=== PATIENT | female | born 1990 | race African-American/Black ===

== ENCOUNTER 2017-12-01 13:04 | Emergency (ER) | payer OTHER, SELFPAY ==
[2017-12-01 14:26] LABS: Urine Blood NEGATIVE (NEG); Urine Glucose NEGATIVE (NEG); Urine Protein 2+ (NEG); Urine Specific Gravity >1.030 (1.005-1.030); Urine pH 5.5 (5.0-7.0)
--- NOTE | 2017-12-01 14:40 | RAD REPORT ---
EXAM DESCRIPTION: RAD - Chest Single View - 12/01/2017 2:27 pm CLINICAL HISTORY: Chest pain. COMPARISON: 03/02/2015 FINDINGS: Portable technique limits examination quality. The lungs are grossly clear. The heart is normal in size. No displaced fractures. IMPRESSION: No acute intrathoracic process suspected.
[2017-12-01 14:49] LABS: Absolute Lymphocytes (CBC) 1.5 K/uL (0.7-4.9); Absolute Monocytes 0.4 K/uL (0.1-1.3); Absolute Neutrophil 3.1 K/uL (1.8-8.0); Basophils % 0.9 % (0-1.3); Eosinophils % 1.3 % (0-4.4); Hematocrit 37.6 % (36.0-45.0); MCH 30.1 pg (27.0-35.0); MPV 9.6 fL (7.6-11.3); Monocytes % 7.5 % (3.3-12.3); RBC Red Blood Cell Count 4.27 M/uL (3.86-4.86)
[2017-12-01 15:00] LABS: Protime INR 1.26
[2017-12-01 15:03] LABS: Potassium 3.7 mEq/L (3.6-5.0)
[2017-12-01 15:09] LABS: Bilirubin Direct 0.1 mg/dL (0-0.2); Bilirubin Total 0.6 mg/dL (0.3-1.2); Magnesium 1.7 mg/dL (1.8-2.5); Protein, Total 7.8 g/dL (6.0-8.3)
[2017-12-01 15:11] LABS: CKMB Creatine Kinase MB 0.9 ng/ml (0.3-4.0)
[2017-12-01] MEDS ORDERED: PANTOPRAZOLE 40 MG INJ ONE (15:13)
[2017-12-01] MEDS ORDERED: ONDANSETRON 4 MG/2 ML VIAL ONE (15:13)
[2017-12-01] MEDS ORDERED: NA CHLORIDE 0.9% 500 ML ONE (15:42)
[2017-12-01] MEDS ORDERED: PROMETHAZINE 25 MG/ML VIAL ONE (15:42)
--- NOTE | 2017-12-01 17:00 | EKG ---
Test Date: 2017-12-01 Test Time: 14:47:08 Manager Chemistry: HEIDE MEASUREMENT RESULTS: Intervals: Rate: 74 ND: 172 QRSD: 84 QT: 374 QTc: 415 [place]: P: 49 ND: 172 QRS: 51 T: 22 INTERPRETIVE STATEMENTS: Normal sinus rhythm Normal ECG No previous ECG available for comparison Electronically Signed On 12-01-17 16:59:44 CDT by Bret Andrade
--- NOTE | 2017-12-01 18:00 | RAD REPORT ---
EXAM DESCRIPTION: CT - Chest For Pe Angio - 12/01/2017 5:49 pm CLINICAL HISTORY: Chest pain. COMPARISON: None. TECHNIQUE: CT angiogram of the pulmonary arteries was performed with MIP. All CT scans are performed using dose optimization technique as appropriate and may include automated exposure control or mA/KV adjustment according to patient size. FINDINGS: No evidence of pulmonary thromboembolism. No acute aortic finding demonstrated. The lungs are clear. No significant pericardial or pleural fluid. No concerning bony finding. IMPRESSION: No evidence of pulmonary thromboembolism. No acute lung findings.
--- NOTE | 2017-12-01 18:02 | RAD REPORT ---
EXAM DESCRIPTION: CTAbdomen Pelvis W Contrast - 12/01/2017 5:49 pm CLINICAL HISTORY: Abdominal pain. COMPARISON: None. TECHNIQUE: Biphasic CT imaging of the abdomen and pelvis was performed with 100 ml non-ionic IV cont rast. All CT scans are performed using dose optimization technique as appropriate and may include automated exposure control or mA/KV adjustment according to patient size. FINDINGS: The lung bases are clear. The liver demonstrates an area of diminished density in the left lobe, favoring focal fatty infiltrat ion. A small 15 mm enhancing lesion near the dome liver in the right lobe is probably a benign yulissa ioma or similar lesion. No intrahepatic biliary dilatation seen. Postsurgical changes are present abo ut the stomach. Cholecystectomy clips are seen. The spleen, adrenal glands and kidneys are within normal limits. No bowel obstruction, free air, free fluid or abscess. The appendix is slightly prominent in size me asuring 8 mm, without periappendiceal fat stranding. No evidence of significant lymphadenopathy. IUD is present in the uterus. No suspicious bony findings. IMPRESSION: Postsurgical changes about the stomach noted without acute abnormality detected. Upper limit of normal appendix without significant surrounding inflammatory changes. Clinical correla tion with right lower quadrant tenderness is advised.
--- NOTE | 2017-12-01 18:50 | EDPHYS ---
Physician Documentation [facility] Name: Braxton Hunt Age: 27 yrs Sex: Female : 1990 Arrival Date: 12/01/2017 Time: 13:08 Bed 24 Private MD: None, None ED Physician Juan Thomas HPI: 12/01 14:00 This 27 yrs old Black Female presents to ER via Ambulatory with complaints of Chest cp Pain, Vomiting, Shortness Of Breath. 14:00 The patient or guardian reports chest pain that is located primarily in the anterior cp chest wall, left. 14:00 The pain radiates to left back. Associated signs and symptoms: Pertinent positives: cp abdominal pain, shortness of breath, Pertinent negatives: cough, diaphoresis, dizziness, headache, lower extremity pain, lower extremity swelling, palpitations, syncope. 14:00 The chest pain is described as aching. cp 14:00 Duration: The patient or guardian reports multiple episodes, that wax and wane. cp Modifying factors: the symptoms are aggravated by nothing. Severity of pain: in the emergency department the pain has improved moderately. Patient reports history of persistent vomiting after eating. Noticed small amount of blood after vomiting yesterday, none today. Reports having gastric sleeve surgery October 2016 by physician in [place]. No f/u since surgery. 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 - Social history:: Smoking status: Patient/guardian denies using tobacco. ROS: 14:10 Constitutional: Positive for poor PO intake, Negative for body aches, chills, fever. cp 14:10 Eyes: Negative for injury, pain, redness, and discharge. cp 14:10 ENT: Negative for drainage from ear(s), ear pain, sore throat, difficulty swallowing, difficulty handling secretions. 14:10 Cardiovascular: Positive for chest pain, of the left side chest, Negative for edema, palpitations. 14:10 Respiratory: Positive for shortness of breath, Negative for cough, hemoptysis, wheezing. 14:10 Abdomen/GI: Positive for abdominal pain, nausea, vomiting, of the epigastric area, Negative for diarrhea, constipation, hematemesis, black/tarry stool, rectal bleeding. 14:10 Skin: Negative for cellulitis, rash. 14:10 Neuro: Negative for altered mental status, headache, syncope, near syncope, weakness. 14:10 All other systems are negative. Exam: 14:18 Constitutional: The patient appears in no acute distress, alert, awake, cp non-diaphoretic, non-toxic, well developed, well nourished, uncomfortable, overweight 14:18 Head/Face: Normocephalic, atraumatic. Eyes: Pupils equal round and reactive to light, cp extra-ocular motions intact. Lids and lashes normal. Conjunctiva and sclera are non-icteric and not injected. Cornea within normal limits. Periorbital areas with no swelling, redness, or edema. ENT: Nares patent. No nasal discharge, no septal abnormalities noted. Tympanic membranes are normal and external auditory canals are clear. Oropharynx with no redness, swelling, or masses, exudates, or evidence of obstruction, uvula midline. Mucous membranes moist. Neck: Trachea midline, no thyromegaly or masses palpated, and no cervical lymphadenopathy. Supple, full range of motion without nuchal rigidity, or vertebral point tenderness. No Meningismus. 14:18 Chest/axilla: Inspection: normal, Palpation: is normal, no crepitus, no tenderness. 14:18 Cardiovascular: Rate: normal, Rhythm: regular, Pulses: Pulses are 2+ in right radial artery and left radial artery. Edema: is not appreciated, JVD: is not appreciated. 14:18 Respiratory: the patient does not display signs of respiratory distress, Respirations: labored breathing, is not present, accessory muscle usage, is absent, shallow respirations, are not present, splinting, is not noted, tachypnea, is not appreciated, Breath sounds: are clear throughout, decreased breath sounds, are not appreciated, stridor, is not appreciated, wheezing: is not appreciated. 14:18 Abdomen/GI: Inspection: obese scar(s), are noted in the , Bowel sounds: active, all quadrants, Palpation: soft, in all quadrants, moderate abdominal tenderness, in the epigastric area, rebound tenderness, is not appreciated, voluntary guarding, is elicited in the epigastric area. 14:18 Back: CVA tenderness, is absent. 14:55 ECG was reviewed by the Attending Physician. cp Vital Signs: 13:13 BP 147 / 97; Pulse 80; Resp 20; Temp 97.8; Pulse Ox 100% on R/A; Weight 95.71 kg; aj Height 5 ft. 3 in. (160.02 cm); Pain 7/10; 14:56 BP 112 / 89; Pulse 66; Resp 18; Pulse Ox 100% ; tl3 15:58 BP 119 / 88; Pulse 71; Resp 18; Pulse Ox 100% on R/A; tl3 16:59 BP 128 / 79; Pulse 66; Resp 18; Pulse Ox 100% on R/A; tl3 18:16 BP 118 / 76; Pulse 68; Resp 16; Pulse Ox 100% ; tl3 13:13 Body Mass Index 37.38 (95.71 kg, 160.02 cm) aj MDM: 13:26 Patient medically screened. cp 15:00 Differential diagnosis: abnormal EKG, acute pericarditis, anxiety, chest wall pain, cp costochondritis, esophagitis, gastritis, myocarditis, pancreatitis, pneumonia, pneumothorax, pulmonary embolus, thoracic aortic disection. 18:48 ED course: VSS. Nausea markedly improved and vomiting resolved. Patient tolerating po cp fluids. Reexamination of abdomen, no RLQ tenderness noted with palpation. 18:49 Data reviewed: vital signs, nurses notes, lab test result(s), EKG, radiologic studies, cp CT scan, plain films, and as a result, I will discharge patient. 18:49 Response to treatment: the patient's symptoms have markedly improved after treatment. 18:49 Special discussion: Based on the patient's history, exam, and Dx evaluation, there is cp no indication for emergent intervention or inpatient Tx. It is understood by the patient/guardian that if the Sx's persist or worsen they need to return immediately for re-evaluation. Based on the patient's Hx, exam, and Dx evaluation, there is no indication for emergent surgery or inpatient Tx. It is understood by the patient/guardian that if the Sx's persist or worsen they need to return immediately for re-evaluation. 12/01 13:52 Order name: Urine Dipstick--Ancillary (enter results); Complete Time: 14:33 mw2 12/01 16:12 Interpretation: Normal except: USPGR >1.030; UKET 4+; UPROT 2+. cp / 14:10 Order name: Basic Metabolic Panel; Complete Time: 15:12 cp 12/01 15:12 Interpretation: Normal except: GFR 84. cp 12/01 14:10 Order name: BNP; Complete Time: 15:20 cp 12/01 14:10 Order name: CBC with Diff; Complete Time: 14:54 cp 12/01 14:10 Order name: Ckmb; Complete Time: 15:12 cp 12/01 14:10 Order name: CPK; Complete Time: 15:12 cp 12/01 14:10 Order name: LFT's; Complete Time: 15:12 cp 12/01 15:12 Interpretation: Normal except: GLOB 3.8. cp 12/01 14:10 Order name: Magnesium; Complete Time: 15:12 cp 12/01 16:12 Interpretation: Abnormal: MG 1.7. cp 12/01 14:10 Order name: PT-INR; Complete Time: 15:12 cp 12/01 14:10 Order name: Ptt, Activated; Complete Time: 15:12 cp 12/01 14:10 Order name: Troponin (emerg Dept Use Only); Complete Time: 15:12 cp 12/01 14:10 Order name: XRAY Chest (1 view); Complete Time: 14:54 cp 12/01 14:10 Order name: Lipase; Complete Time: 15:12 cp 12/01 14:37 Order name: D-Dimer; Complete Time: 16:11 cp 12/01 16:11 Interpretation: Abnormal: D-DIMER 1613. cp 12/01 14:10 Order name: Urine Test (obtain specimen); Complete Time: 14:46 cp 12/01 14:10 Order name: EKG; Complete Time: 14:10 cp 12/01 14:10 Order name: Cardiac monitoring; Complete Time: 14:46 cp 12/01 14:10 Order name: EKG - Nurse/Tech; Complete Time: 14:46 cp 12/01 14:10 Order name: IV Saline Lock; Complete Time: 14:46 cp 12/01 14:10 Order name: Labs collected and sent; Complete Time: 14:46 cp 12/01 14:10 Order name: O2 Per Protocol; Complete Time: 14:46 cp 12/01 14:10 Order name: O2 Sat Monitoring; Complete Time: 14:46 cp 12/01 14:10 Order name: Urine Dipstick-Ancillary (obtain specimen); Complete Time: 14:46 cp 12/01 14:56 Order name: CT Abd/Pelvis - W/Contrast: give oral contrast cp 12/01 15:55 Order name: CT Chest For PE Angio cp 12/01 18:06 Order name: PO challenge; Complete Time: 19:07 cp EC:55 Rate is 74 beats/min. Rhythm is regular. [place] interval is normal. QRS interval is normal. cp QT interval is normal. No ST changes noted. Interpreted by me. Reviewed by me. Administered Medications: 15:21 Drug: ProTONIX 40 mg Route: IVP; Infused Over: 2 mins; Site: left wrist; tl3 15:59 Follow up: Response: No adverse reaction tl3 15:22 CANCELLED (given IV): Zofran 4 mg PO once tl3 15:22 Drug: Zofran 4 mg Route: IVP; Site: left wrist; tl3 16:00 Follow up: Response: No adverse reaction; Nausea unchanged tl3 15:56 Drug: Phenergan 25 mg Route: IVP; Infused Over: 5 mins; Site: left hand; tl3 18:18 Follow up: Response: No adverse reaction; Nausea is decreased tl3 15:56 Drug: NS 0.9% 500 ml Route: IV; Rate: bolus; Site: left hand; Delivery: Primary tubing; tl3 17:00 Follow up: IV Status: Completed infusion; IV Intake: 500ml tl3 Point of Care Testing: Urine : 17:17 hCG Reading: Negative; tl3 Disposition: 19:15 Co-signature as Attending Physician, Juan Thomas MD I agree with the assessment and [place] plan of care. Disposition: 12/01/17 18:50 Discharged to Home. Impression: Other chest pain, Epigastric pain, Nausea and vomiting. - Condition is Stable. - Discharge Instructions: Nonspecific Chest Pain, Gastroesophageal Reflux Disease, Adult, Nausea and Vomiting. - Prescriptions for Protonix 40 mg Oral Tablet - take 1 tablet by ORAL route once daily; 30 tablet. Phenergan 25 mg Rectal Suppository - insert 1 suppository by RECTAL route every 6 hours As needed; 12 suppository. promethazine 25 mg Oral Tablet - take 1 tablet by ORAL route every 6 hours As needed; 20 tablet. - Medication Reconciliation Form, Thank You Letter, Antibiotic Education, Prescription Opioid Use form. - Follow up: Williams Davidson MD; When: 1 - 2 days; Reason: Recheck today's complaints. - Problem is new. - Symptoms have improved. Signatures: Dispatcher [employer] Chanda Patel RN RN aj Anderson, Corey, MD MD cha Page, Corey, PA PA cp Lowrey, Tammy, RN RN tl3 Corrections: (The following items were deleted from the chart) 15:22 15:12 Zofran 4 mg PO once ordered. elvira tl3
--- NOTE | 2017-12-01 18:50 | ER ---
Nurse's Notes [facility] Department Name: Braxton Hunt Age: 27 yrs Sex: Female : 1990 Arrival Date: 12/01/2017 Time: 13:08 Bed 24 Private MD: None, None Diagnosis: Other chest pain;Epigastric pain;Nausea and vomiting Presentation: 12/01 13:10 Presenting complaint: Patient states: Chest pain for 1 week with vomiting dark red aj blood yesterday. Sleeve gastrectomy placed 1 month ago in [place]. No follow up appointment scheduled. Transition of care: patient was not received from another setting of care. Onset of symptoms was November 24, 2017. Initial Sepsis Screen: Does the patient meet any 2 criteria? No. Patient's initial sepsis screen is negative. Does the patient have a suspected source of infection? No. Patient's initial sepsis screen is negative. Care prior to arrival: None. 13:10 Method Of Arrival: Ambulatory aj 13:10 Acuity: EMMANUEL 3 aj Triage Assessment: 13:13 General: Appears in no apparent distress. comfortable, Behavior is calm, cooperative, aj appropriate for age. Pain: Complains of pain in mid-sternal area Pain radiates to mid back area Pain currently is 7 out of 10 on a pain scale. Neuro: Level of Consciousness is awake, alert, obeys commands, Oriented to person, place, time, situation. Cardiovascular: Reports chest pain, shortness of breath, vomiting, Capillary refill < 3 seconds in bilateral fingers Patient's skin is warm and dry. Respiratory: Reports shortness of breath Airway is patent Respiratory effort is even, unlabored, Respiratory pattern is regular, symmetrical. GI: Reports upper abdominal pain, nausea, vomiting. Derm: Skin is intact, is healthy with good turgor, Skin is pink, warm \T\ dry. normal. 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 - Social history:: Smoking status: Patient/guardian denies using tobacco. Screenin:32 Abuse screen: Denies threats or abuse. Nutritional screening: No deficits noted. tl3 Tuberculosis screening: No symptoms or risk factors identified. Fall Risk None identified. Assessment: 13:32 General: Appears uncomfortable, well groomed, well developed, well nourished, Behavior tl3 is calm, cooperative, appropriate for age. Pain: Complains of pain in back and mid back area and chest and mid-sternal area Pain began 2-3 days ago. Neuro: Level of Consciousness is awake, alert, obeys commands, Oriented to person, place, time, situation, Appropriate for age. Cardiovascular: Heart tones S1 S2 present Capillary refill < 3 seconds in bilateral fingers. Respiratory: Airway is patent Trachea midline Respiratory effort is even, unlabored, Respiratory pattern is regular, symmetrical, Breath sounds are clear bilaterally. GI: No signs and/or symptoms were reported involving the gastrointestinal system. GI: Abdomen is round non-distended, Bowel sounds present X 4 quads. : No signs and/or symptoms were reported regarding the genitourinary system. EENT: No signs and/or symptoms were reported regarding the EENT system. Derm: No signs and/or symptoms reported regarding the dermatologic system. 14:56 Reassessment: No changes from previously documented assessment. Patient and/or family tl3 updated on plan of care and expected duration. Pain level reassessed. Patient is alert, oriented x 3, equal unlabored respirations, skin warm/dry/pink. pt sitting up in bed, awaiting lab results. 15:15 Reassessment: Patient and/or family updated on plan of care and expected duration. Pain tl3 level reassessed. Patient is alert, oriented x 3, equal unlabored respirations, skin warm/dry/pink. pt given contrast, started vomiting right away, Provider notified and orders received. 16:59 Reassessment: Patient appears in no apparent distress at this time. No changes from tl3 previously documented assessment. Patient and/or family updated on plan of care and expected duration. Pain level reassessed. Patient is alert, oriented x 3, equal unlabored respirations, skin warm/dry/pink. pt is finally able to start drinking contrast, 2nd Iv placed for PE scan, pt tolerated well. 18:16 Reassessment: Patient appears in no apparent distress at this time. No changes from tl3 previously documented assessment. Patient and/or family updated on plan of care and expected duration. Pain level reassessed. Patient is alert, oriented x 3, equal unlabored respirations, skin warm/dry/pink. pt states that she finally feels like she can rest, lights dimmed and door closed. 18:32 Reassessment: PO challenge offered. tl3 19:03 Reassessment: Patient appears in no apparent distress at this time. No changes from tl3 previously documented assessment. Patient and/or family updated on plan of care and expected duration. Pain level reassessed. Patient is alert, oriented x 3, equal unlabored respirations, skin warm/dry/pink. pt tolerated PO Challenge without difficulty. Vital Signs: 13:13 BP 147 / 97; Pulse 80; Resp 20; Temp 97.8; Pulse Ox 100% on R/A; Weight 95.71 kg; aj Height 5 ft. 3 in. (160.02 cm); Pain 7/10; 14:56 BP 112 / 89; Pulse 66; Resp 18; Pulse Ox 100% ; tl3 15:58 BP 119 / 88; Pulse 71; Resp 18; Pulse Ox 100% on R/A; tl3 16:59 BP 128 / 79; Pulse 66; Resp 18; Pulse Ox 100% on R/A; tl3 18:16 BP 118 / 76; Pulse 68; Resp 16; Pulse Ox 100% ; tl3 13:13 Body Mass Index 37.38 (95.71 kg, 160.02 cm) ED Course: 13:08 Patient arrived in ED. mr 13:08 None, None is Private Physician. mr 13:11 Triage completed. aj 13:13 Arm band placed on left wrist. Patient placed in an exam room. aj 13:14 Tameka Morales, MARVEL is Primary Nurse. tl3 13:26 Juan Trejo PA is PHCP. cp 13:26 Jaun Thomas MD is Attending Physician. cp 13:32 No apparent distress. Awaiting ED provider evaluation. tl3 13:32 Patient has correct armband on for positive identification. Placed in gown. Bed in low tl3 position. Call light in reach. Side rails up X 1. resource technician on. Pulse ox on. NIBP on. 13:32 No provider procedures requiring assistance completed. Patient maintains SpO2 tl3 saturation greater than 95% on room air. 14:27 X-ray completed. Portable x-ray completed in exam room. Patient tolerated procedure mh1 well. 14:27 XRAY Chest (1 view) In Process Unspecified. EDMS 14:30 Initial lab(s) drawn, by me, sent to lab. tl3 14:47 Inserted saline lock: 22 gauge in left hand, using aseptic technique. Blood collected. tl3 14:59 EKG done, by central supply technician supervisor. reviewed by Juan GIBSON. at1 16:48 Radiology exam delayed due to pt has not finished PO contrast at this time. sj 16:58 Initial lab(s) drawn, by me, sent to lab. Inserted saline lock: 22 gauge in right tl3 antecubital area, using aseptic technique. Blood collected. 17:[address] via wheelchair. tl3 17:49 CT Abd/Pelvis - W/Contrast: give oral contrast In Process Unspecified. EDMS 17:49 CT Chest For PE Angio In Process Unspecified. EDMS 18:49 Williams Davidson MD is Referral Physician. cp 19:03 IV discontinued, intact, bleeding controlled, No redness/swelling at site. Pressure tl3 dressing applied. Administered Medications: 15:21 Drug: ProTONIX 40 mg Route: IVP; Infused Over: 2 mins; Site: left wrist; tl3 15:59 Follow up: Response: No adverse reaction tl3 15:22 CANCELLED (given IV): Zofran 4 mg PO once tl3 15:22 Drug: Zofran 4 mg Route: IVP; Site: left wrist; tl3 16:00 Follow up: Response: No adverse reaction; Nausea unchanged tl3 15:56 Drug: Phenergan 25 mg Route: IVP; Infused Over: 5 mins; Site: left hand; tl3 18:18 Follow up: Response: No adverse reaction; Nausea is decreased tl3 15:56 Drug: NS 0.9% 500 ml Route: IV; Rate: bolus; Site: left hand; Delivery: Primary tubing; tl3 17:00 Follow up: IV Status: Completed infusion; IV Intake: 500ml tl3 Point of Care Testing: Urine : 17:17 hCG Reading: Negative; tl3 Intake: 17:00 IV: 500ml; Total: 500ml. tl3 Outcome: 18:50 Discharge ordered by MD. cp 19:03 Discharged to home ambulatory. tl3 19:03 Condition: good 19:03 Discharge instructions given to patient, family, friend, significant other, Instructed on discharge instructions, Demonstrated understanding of instructions, follow-up care, medications, wound care, Prescriptions given X 3. 19:06 Patient left the ED. tl3 Signatures: Dispatcher [employer] EDChanda Muhammad, RN RN Heidi Austin Surjit Viramontesha mh1 Sammy, Yamilet Chanda rico, motorcycle engine assembler EKG Tat1 Juan Trejo PA PA cp Lowrey, Tammy, RN RN tl3 Corrections: (The following items were deleted from the chart) 18:18 18:17 IV Status: Completed infusion; IV Intake: 5001ml tl3 tl3
[2017-12-01 19:13] VITALS: TEMP 97.8; O2SAT 100
[2017-12-01 19:17] VITALS: BP 118/76
== END 2017-12-01 19:06 | disposition home or self-care (01) ==
LOC: ER 13:04
DX: R07.89 Other chest pain (principal); R11.2 Nausea with vomiting, unspecified
CPT/HCPCS: 36415; 71045; 71275; 74177; 80048; 80076; 81003; 82550; 82553; 83690; 83735; 83880; 84484; 85025; 85379; 85610; 85730; 93005; 99285; C9113; J2405; J2550; Q9967

== ENCOUNTER 2019-05-16 06:22 | Inpatient (IN) | payer OTHER ==
[2019-05-16] MEDS ORDERED: PROMETHAZINE 25 MG/ML VIAL IM PRN (07:32)
[2019-05-16] MEDS ORDERED: BUTORPHANOL 1 MG/ML INJ IV PRN (07:32)
[2019-05-16] MEDS ORDERED: METHYLERGONOVINE 0.2MG/ML AMP IM PRN (07:32)
[2019-05-16] MEDS ORDERED: Ringers Lactate 1,000 ML IV PRN (07:32)
[2019-05-16] MEDS ORDERED: CARBOPROST TROME 250 MCG/ML IM PRN (07:32)
[2019-05-16] MEDS ORDERED: OXYTOCIN/LR 20 UNIT/1,000 ML BAG IV SCH ×2 (08:00→17:00)
[2019-05-16] MEDS ORDERED: Ringers Lactate 1,000 ML IV SCH (08:00)
[2019-05-16 08:07] LABS: Absolute Lymphocytes (CBC) 0.4 K/uL (0.7-4.9); Basophils % 0.2 % (0-1.3); Hematocrit 26.1 % (36.0-45.0); Lymphocytes % 6.2 % (15.3-44.8); MPV 7.9 fL (7.6-11.3); RBC Red Blood Cell Count 2.97 M/uL (3.86-4.86)
[2019-05-16 08:16] LABS: Urine Appearance CLEAR; Urine Bilirubin NEGATIVE (NEG); Urine Blood NEGATIVE (NEG); Urine Color DK YELLOW; Urine Glucose NEGATIVE (NEG); Urine Protein TRACE (NEG); Urine Specific Gravity >=1.030 (1.005-1.030); Urine Urobilinogen 0.2 mg/dL (0.2-1.0)
[2019-05-16 08:19] LABS: Urine Microscopic Reflex ORDER UMIC
[2019-05-16 08:26] LABS: Urine Bacteria <20 /HPF (<20); Urine Culture Reflex Order REFLEXED; Urine Mucus 2+ /HPF (NONE SEEN); Urine RBC <5 /HPF (NONE SEEN)
[2019-05-16 08:49] VITALS: BMI 33.8
--- NOTE | 2019-05-16 09:09 | PREOPHP ---
Date of Admission: 05/16/2019 This 28-year-old 3, para 1, 39 weeks 2 days, Rh positive, immune to Rubella. Negative beta s trep screen 3 cm, 1 last exam in my office. FHTs normal and reactive. The initiation of induction h as been delayed as the unit now is full and we have 2 laboring patients by another physician. As aric n as we have a nursing personnel available, we will start her IV. Start the Pitocin and then I will rupture of membranes. Full labor talk given. The patient will be requesting epidural once she gets into a good active labor and the baby comes down more than it is now and she gets to at least 4 cm, p atient agrees. RAKESH/KAI Voice ID: [id number]
[2019-05-16] MEDS ORDERED: Ringers Lactate 1,000 ML IV ONE (12:23)
[2019-05-16] MEDS ORDERED: FENTANYL CITR 100 MCG/2 ML IV ONE (12:30)
[2019-05-16] MEDS ORDERED: ROPIVACAINE HCL 100 ML IV PRN (12:31)
[2019-05-16] MEDS ORDERED: ROPIVACAINE HCL 0.2% 20ML AMP IV ONE (12:32)
[2019-05-16] MEDS ORDERED: FENTANYL CITR 100 MCG/2 ML ONE (13:13)
[2019-05-16 13:42] LABS: Anisocytosis 1+; Blood Morphology Comment NOTED (NOT SEEN); Platelet Estimate ADEQ; Urine White Blood Cell Casts OK
[2019-05-16] MEDS ORDERED: ACETAMINOPHEN 500 MG TAB PO PRN ×2 (15:17→16:24)
[2019-05-16] MEDS ORDERED: DOCUSATE NA/SENNA CONC 1 TAB PO PRN (16:24)
[2019-05-16] MEDS ORDERED: DIPHENHYDRAMINE 25 MG TAB/CAP PO PRN (16:24)
[2019-05-16] MEDS ORDERED: IBUPROFEN 200 MG TAB PO PRN (16:24)
[2019-05-16] MEDS ORDERED: BISACODYL 10 MG RECTAL SUPP RECT PRN (16:24)
[2019-05-16] MEDS ORDERED: Oxycodone HCl/Acetaminophen 1 TAB TAB PO PRN ×2 (16:24)
[2019-05-16 20:54] LABS: RPR (Rapid Plasma Reagin) NON-REACT (NON-REACT)
--- NOTE | 2019-05-17 03:10 | OP ---
Surgeon: Howie Yusuf MD This is a 28-year-old 3, para 1, AB1 at 39 weeks 1 day, 3 cm on admission. Rupture of membra orin, clear fluid. Patient went to an active labor pattern at 4 to 5 cm, requested and received epidu ral anesthesia, which gave excellent effect during remainder of labor and delivery. After achieving 5 cm, went rapidly to complete second stage consisted of one good push. Patient was delivered of an estimated 7 pounds plus female. Apgars 9 and 9. Two small first-degree lacerations repaired with 2- 0 chromic, 4 stitches and 1, one [id number] stitch in the second. Schultze delivery of the plac enta, which was inspected and noted to be intact and normal. Less than 300 cc blood loss. Rh positi ve, immune to Rubella. Negative beta strep screen. Tolerated all procedures well. Final Diagnoses: Term intrauterine 39 weeks 1 day, vaginal delivery, epidural anesthesia. RAKESH/KAI Voice ID: [id number] Report ID: [id number]
--- NOTE | 2019-05-17 08:13 | PN ---
Patient is now 4.5 cm, 80% effaced, vertex, -1 station. Clear fluid. FHT still normal and reactive. Patient is requesting epidural. She is being hydrated at this time and should get her epidural wit hin the next 30 minutes. Pitocin is at 6 milliunits per minute at this point. RAKESH/KAI Voice ID: [id number] Report ID: [id number]
--- NOTE | 2019-05-17 08:31 | PREOPHP ---
Date of Admission: 05/16/2019 Patient is having contractions every 3 to 5 minutes, mild, baby looks good, 3 cm, -1 station. Ruptur e of membranes, clear fluid. Has not been started on Pitocin yet. Hopefully, she will be started so on so that we can get the process underway. RAKESH/KAI Voice ID: [id number]
[2019-05-17 16:21] VITALS: BP 147/82; TEMP 98
[2019-05-19 12:39] LABS: HBsAG Nonreactive (Nonreactive)
--- NOTE | 2019-05-21 10:24 | DS ---
Date of Discharge: 05/17/2019 Hospital Course: 28-year-old 3, para 1, AB 1 at 39 weeks 1 day, delivered an estimated 7-paul nd plus female, Apgars 9 and 9, one push. Epidural anesthesia, 2 small first-degree lacerations, 1 r equired 4 stitches of 2-0 chromic, the other lbkhdr-[id number]-glogg stitch with one 2-0 chromic. Tutu quispe of the placenta, which was inspected and noted to be intact and normal. Less than 300 mL blo od loss. Rh positive, immune to Rubella. Negative beta strep screen. ; afebrile, ambulat ing and voiding. Lochia is normal. Will be dismissed later today to report back to my office in 6 w eeks for followup, to report any temperature elevation of 100 degrees or greater, severe pain, heavy bleeding, or any other type of abnormalities. No post epidural problems. She has had her Tdap and f martha shots. Requests no analgesics on dismissal. Final Diagnoses: Intrauterine gestation, 39 weeks 1 day, vaginal delivery, epidural anesthesia. RAKESH/KAI Voice ID: [id number] Report ID: [id number]
== END 2019-05-17 18:10 | disposition home or self-care (01) | DRG 807 ==
LOC: 2ND-WC 06:22
PROVIDERS: ADMIT Specialist; ATTEND Specialist
PROC: 10907ZC Drainage of Amniotic Fluid, Therapeutic from Products of Conception, Via Natural or Artificial Opening (ICD-10-PCS; principal; 2019-05-16)
PROC: 10E0XZZ Delivery of Products of Conception, External Approach (ICD-10-PCS; 2019-05-16)
PROC: 0HQ9XZZ Repair Perineum Skin, External Approach (ICD-10-PCS; 2019-05-16)
DX: O70.0 First degree perineal laceration during delivery (principal); Z37.0 Single live birth; Z3A.39 39 weeks gestation of pregnancy
CPT/HCPCS: 36415; 81003; 81015; 85025; 86592; 86901; 87086; 87088; 87340; J2210; J2590; J2795; J3010

== ENCOUNTER 2024-05-24 07:41 | Emergency (ER) | payer OTHER, SELFPAY ==
--- OUTSIDE RECORDS SUMMARY | 2024-05-24 07:48 | XMS REPORT | Continuity of Care Document ---
Author Name Unknown Address [address] [facility] [address] [place] [address] [facility] thconnect Address [address] [facility] [place] [address] Care Team Providers Care Postdoctoral Fellow Name Role Phone Mary Barrera Primary Care Physicia n [email or web address] Attending Clinician Unavaila Jordan Garcia MD Attending Clinician [phone] JORDAN BRODY Attending Clinician Unavail able Doctor Unassigned, [place] Attending Clinician U navailable MARY ALMARAZ Attending Clinician Unavail able ARMADNO RYAN Attending Clinician Unav ailable NOEL RAUSCH Attending Clinician Unavailable Pgy3 Attending Clinician Unavailable Noel Rausch MD Attending Clinician [phone] Mary Barrera Attending Clinician + Judit Alonso MD Attending Clinician + Visit, [facility] Nurse Attending Clinician Unava ilable HIMANSHU DANIELS Attending Clinician Unavailwyatt Daniels MD, Himanshu Munguia Attending Clinician + [phone] Theodore PADILLA Juan Attending Clinician + [phone] Romeo Jerry MD Attending Clinician [phone] Maryan PETERSON, Aranza Attending Clinician + [phone] INDUCTION, ARCELIA Attending Clinician Unavailable Sara Thompson CNM Attending Clinician [phone] SARA THOMPSON Attending Clinician Unavailgarland ramey Provider, [facility] Attending Clinician Irene vailable Ultrasound, [facility] Attending Clinician UnavailJUDIT Pierce Attending Clinician Unav ailable ROSETTA GORDILLO Attending Clinician Unavailable Risk, Mig-Knoik-[facility]/High Attending Clinician Unav ailable Rand WHRosetta GARCIA Attending Clinician [phone] Ortega WHCNP, Mariela Childs Attending Clinician [phone] ORTEGAMARIELA CELIS Attending Clinician Unavailwyatt santiago Fellow, Poli Rmchrafi m Attending Clinician Unavai trell Waters MD, Ordoñez Attending Clinician + Ultrasound, [facility] Attending Clinician UnavailLYLE Saldaña Attending Clinician Unavailable Paloma Lucio Attending Clinician UnavailLyle Richardson MD Attending Clinician [phone] Chika Steen MD Attending Clinician [phone] CHIKA STEEN Attending Clinician Unavailable GONSALO PERAZA Attending Clinician Unavailab Velez FABRIC WORKER LEADERGonsalo Attending Clinician + [phone] Lab, [facility] Attending Clinician Unavailable Howie Grady MD Attending Clinician + [phone], [facility] Room Attending Clinician Unavailgarland Mcdonald MD, Kristen Munguia Attending Clinician + [phone] HOWIE GARDY Attending Clinician Unavailwyatt santiago Faculty, [facility] Attending Clinician Unava ilable KENNEDY Attending Clinician Unavailable GC_GCBZW_Kadiyala_S Admitting Clinician UnavailJORDAN Dominique Admitting Clinician Unavail able Jordan Brody MD Admitting Clinician Judit Alonso MD Admitting Clinician + JUDIT ALONSO Admitting Clinician Unav ailable HIMANSHU DANIELS Admitting Clinician Unavailabl Himanshu Victoria MD Admitting Clinician [phone] KENNEDY Admitting Clinician Unavailable Payers Payer Name Policy Type Policy Number Effective Date Expirati on Date Source [employer] [place] [id number] 2022 00:00:00 Problems Condition Name Condition Details Condition Category Status Onset Date Resolution Date Last Treatment Date Treating Clinician Comments Source Obesity (BMI 30-39.9) Obesity (BMI 30-39.9) Disease Active 11-09 00:00: 00 [facility] Encounter for sterilizat ion Encounter for sterilizat ion Disease Active 11-01 00:00: 00 Overview: Formattin g of this note might be different from the original. Added automatic ally from request for surgery [id number] [facility] Preeclamps ia, severe, unspecifie d trimester Preeclamps ia, severe, unspecifie d trimester Disease Active 20 00:00: 00 [facility] Preeclamps ia, severe, unspecifie d trimester Preeclamps ia, severe, unspecifie d trimester Disease Active 20 00:00: 00 [facility] Anemia, Anemia, Disease Active 2-13 00:00: 00 [facility] Acute blood loss anemia Acute blood loss anemia Disease Active -13 00:00: 00 [facility] (spontaneo us vaginal delivery) (spontaneo us vaginal delivery) Disease Active 2-11 00:00: 00 [facility] Single live Single live Disease Active 2023-0 2-11 00:00: 00 [facility] 37 weeks gestation of 37 weeks gestation of Disease Active 2-10 00:00: 00 [facility] Chlamydia infection affecting in third trimester Chlamydia infection affecting in third trimester Disease Active 2-02 00:00: 00 [facility] Pain of round ligament during Pain of round ligament during Disease Active 1-26 00:00: 00 [facility] Poor growth affecting management of mother in third trimester Poor growth affecting management of mother in third trimester Disease Active 2021-08 2-15 00:00: 00 Overview: Formattin g of this note might be different from the original. 07/15 Weekly UA Doppler/A FI, weekly BPP until 28 weeks and then twice weekly NSTs, serial growth US every 3 weeks. [facility] Anemia of mother in , antepartum Anemia of mother in , antepartum Disease Active 2021-08 2- 00:00: 00 [facility] Tubal ligation status Tubal ligation status Disease Active 2021-08 2- 00:00: 00 [facility] Low-lying placenta in third trimester Low-lying placenta in third trimester Disease Active 2021-08 0-19 00:00: 00 Overview: Formattin g of this note might be different from the original. Follow up at 32 weeks [facility] Chronic hypertensi on affecting Chronic hypertensi on affecting Disease Active -18 00:00: 00 Overview: Formattin g of this note might be different from the original. Not on meds, never been on meds, last saw pcp in 06/2021 [facility] History of miscarriag e History of miscarriag e Disease Active -18 00:00: 00 [facility] with history of with history of Disease Active 7-18 00:00: 00 [facility] Multiparit y Multiparit y Disease Active 7-18 00:00: 00 [facility] Supervisio n of high-risk Supervisio n of high-risk Disease Active 03-01 00:00: 00 [facility] Obesity in Obesity in Disease Active 03-01 00:00: 00 [facility] History of anemia History of anemia Disease Active 03-01 00:00: 00 Overview: Formattin g of this note might be different from the original. Reports iron infusion 2x yearly , last infusion was 06/2021 [facility] History of cosmetic surgery History of cosmetic surgery Disease Active 03-01 00:00: 00 Overview: Formattin g of this note might be different from the original. Reports BBL x 2 in 2019Tummy tuck 2020 [facility] Nausea and vomiting during Nausea and vomiting during Disease Active 03-01 00:00: 00 [facility] Allergies, Adverse Reactions, Alerts Allergy Name Allergy Type Status Severity Reaction(s) Onset Date Inactive Date Treating Clinician Comments Source NO KNOWN ALLERGIE S Drug Class Active [facility] Social History Social Habit Start Date Stop Date Quantity Comments Source ASSERTION 2022-01-22 00:00:00 [facility] of Social function 2022-11-09 00:00:00 2022-11-09 00:00:00 [facility] Exposure to SARS-CoV-2 (event) 2022-10-27 00:00:00 2022-11-06 12:30:[address] [facility] Alcohol intake 2022-08-02 00:00:00 2022-08-02 00:00:00 Ex-drinker (finding) [facility] Tobacco use and exposure 2022-03-01 00:00:00 2022-03-01 00:00:00 Smokeless tobacco non-user [facility] Sex Assigned At 1990 00:00:00 1990 00:00:00 [facility] Smoking Status Start Date Stop Date Source Never smoked tobacco [facility] Medications Ordered Medication Name Filled Medication Name Start Date Stop Date Current Medication? Ordering Clinician Indication Dosage Frequency Signature (SIG) Comments Components Source traMADoL (ULTRAM) tablet 50 mg 11-09 23:21: 14 Yes 50mg 50 mg, Oral, Q6HPRN, Starting on Tue11/09/22 at 1821, Until Discontinu ed, Routine, Pain (scale 1-3) [facility] lactated ringers IV infusion 1,000 mL 11-09 21:00: 00 Yes 1000mL at 75 mL/hr, 1,000 mL, IV Infusion, CONTINUOUS , Starting on Tue11/09/22 at 1600, Until Discontinu ed, Routine, PACU [facility] HYDROmorphO ne (DILAUDID) injection 0.2 mg 11-09 20:53: 45 Yes .2mg 0.2 mg, Slow IV Push, Q5MIN PRN, 10 doses, Starting on Tue11/09/22 at 1553, Until Discontinu ed, Routine, Pain (scale 7-10), PACU
Us e approved by (Faculty): PACU USE -ANESTHESI A SERVICE-HY DROMORPHON E INJECTIONS [facility] FENTanyl PF (SUBLIMAZE (PF)) injection 25 mcg 11-09 20:53: 45 Yes 25ug 25 mcg, Slow IV Push, Q5MIN PRN, 4 doses, Starting on Tue11/09/22 at 1553, Until Discontinu ed, Routine, Pain (scale 4-6), PACU [facility] proMETHazin e (PHENERGAN) 12.5 mg in NS 50 mL IV piggyback (CNR) 11-09 20:53: 45 Yes 12.5mg 12.5 mg, IV Piggyback, at 200 mL/hr Administer over 15 Minutes, PRN, 1 dose, Starting on Tue11/09/22 at 1553, Until Discontinu ed, Routine, Nausea and Vomiting (N/V), PACU [facility] lidocaine-e pinephrine (XYLOCAINE WITH EPINEPHRINE ) 1 %-1:100,000 injection 11-09 19:40: 00 11-09 21:03 :31 No PRN, Starting on Tue11/09/22 at 1440, Until Tue11/09/22 at 1603, Routine, Intra-op [facility] HYDROcodone -acetaminop hen 5-325 mg tablet 11-09 00:00: 00 Yes [id number] 1{tbl} Take 1 tablet by mouth every 6 (six) hours as needed for Pain (scale 7-10) for up to 8 doses. Indication s: acute pain [facility] ibuprofen 600 mg tablet 11-09 00:00: 00 Yes [id number] 600mg Take 1 tablet by mouth every 6 (six) hours as needed for Pain (scale 4-6) for up to 20 doses. [facility] medroxyPROG ESTERone (DEPO-PROVE RA) syringe 150 mg 10-28 20:00: 00 10-28 20:55 :00 No [id number] [facility] th[facility]ide 50 mg tablet 10-08 00:00: 00 11-08 04:59 :00 No [id number] 50mg Take 1 tablet by mouth in the morning for 30 days. [facility] labetaloL (NORMODYNE) tablet 400 mg 10-07 20:00: 00 Yes 400mg 400 mg, Oral, Q8H, First dose (after last modificati on) on Tamra 10/07/22 at 1400, Until Discontinu ed, Routine [facility] labetaloL (NORMODYNE) tablet 100 mg 10-07 15:34: 00 10-07 15:39 :00 No 100mg 100 mg, Oral, ONCE, 1 dose, On Tamra 10/07/22 at 0945, Routine [facility] hydroCHLORO thiazide (ESIDRIX) tablet 50 mg 10-07 15:00: 00 Yes 50mg 50 mg, Oral, DAILY, First dose on Tamra 10/07/22 at 0900, Until Discontinu ed, Routine [facility] butalbital- acetaminoph en-caff (ESGIC) 50-325-40 mg tablet 1 tablet 10-07 12:00: 00 10-07 11:23 :00 No 1{tbl} 1 tablet, Oral, ONCE, 1 dose, On Tamra 10/07/22 at 0600, Routine [facility] butalbital- acetaminoph en-caff (ESGIC) 50-325-40 mg tablet 1 tablet 10-07 02:30: 00 10-07 01:54 :00 No 1{tbl} 1 tablet, Oral, ONCE, 1 dose, On Tue10/06/22 at 2030, Routine [facility] labetaloL 200 mg tablet 10-07 00:00: 00 01-06 04:59 :00 No [id number] 400mg Take 2 tablets by mouth every 8 (eight) hours for 90 days. [facility] proCHLORper azine (COMPAZINE) tablet 10 mg 10-06 23:15: 00 10-06 22:31 :00 No 10mg 10 mg, Oral, ONCE, 1 dose, On Tue10/06/22 at 1715, Routine [facility] labetaloL (NORMODYNE) tablet 300 mg 10-06 20:00: 00 10-07 16:10 :03 No 300mg 300 mg, Oral, Q8H, First dose (after last modificati on) on Tue10/06/22 at 1400, Until Discontinu ed, Routine [facility] labetaloL (NORMODYNE) injection 20 mg 10-06 17:00: 00 10-06 14:55 :00 No 20mg 20 mg, Slow IV Push, ONCE, 1 dose, On Tue10/06/22 at 1100, Routine [facility] labetaloL (NORMODYNE) tablet 100 mg 10-06 14:57: 00 10-06 15:18 :00 No 100mg 100 mg, Oral, ONCE, 1 dose, On Tue10/06/22 at 0900, Routine [facility] butalbital- acetaminoph en-caff (ESGIC) 50-325-40 mg tablet 1 tablet 10-06 11:30: 00 10-06 10:45 :00 No 1{tbl} 1 tablet, Oral, ONCE, 1 dose, On Tue10/06/22 at 0530, Routine [facility] butalbital- acetaminoph en-caff (ESGIC) 50-325-40 mg tablet 1 tablet 10-06 01:45: 00 10-06 02:25 :00 No 1{tbl} 1 tablet, Oral, ONCE, 1 dose, On Tue10/05/22 at 2000, Routine [facility] gadobenate dimeglumine (MULTIHANCE -20 mL) injection 18.18 mL 10-05 23:00: 00 10-05 23:00 :00 No [id number] .2mL/kg 18.18 mL (0.2 mL/kg ?90.9 kg), Intravenou s, ONCE, 1 dose, On Tue10/05/22 at 1700, Routine [facility] caffeine tablet 200 mg 10-05 21:45: 00 10-05 20:46 :00 No 200mg 200 mg, Oral, ONCE, 1 dose, On Tue10/05/22 at 1545, Routine [facility] acetaminoph en (TYLENOL) tablet 650 mg 10-05 21:30: 00 10-05 20:46 :00 No 650mg 650 mg, Oral, ONCE, 1 dose, On Tue10/05/22 at 1530, Routine [facility] labetaloL (NORMODYNE) tablet 200 mg 10-05 14:00: 00 10-06 13:08 :49 No 200mg 200 mg, Oral, TID, First dose (after last modificati on) on Tue10/05/22 at 0800, Until Discontinu ed, Routine [facility] caffeine tablet 200 mg 10-05 12:15: 00 10-05 12:28 :00 No 200mg 200 mg, Oral, ONCE, 1 dose, On Tue10/05/22 at 0615, Routine [facility] acetaminoph en (TYLENOL) tablet 1,000 mg 10-05 12:00: 00 10-05 12:28 :00 No 1000mg 1,000 mg, Oral, ONCE, 1 dose, On Tue10/05/22 at 0600, Routine [facility] labetaloL (NORMODYNE) injection 40 mg 10-05 03:30: 00 10-05 02:40 :00 No 40mg 40 mg, Slow IV Push, ONCE, 1 dose, On Tue10/04/22 at 2130, [facility]CON [facility] magnesium sulfate in water for injection 20 gram/500 mL (4 %) IV infusion 10-05 03:00: 00 Yes 2g/h 2 g/hr (50 mL/hr), IV Infusion, CONTINUOUS , Starting on Tue10/04/22 at 2100, Until Discontinu ed, [facility]CON [facility] labetaloL (NORMODYNE) injection 20 mg 10-05 03:00: 00 10-05 02:20 :00 No 20mg 20 mg, Slow IV Push, ONCE, 1 dose, On Tue10/04/22 at 2100, [facility]CON [facility] labetaloL (NORMODYNE) tablet 100 mg 10-05 02:45: 00 10-05 08:05 :20 No 100mg 100 mg, Oral, TID, First dose (after last modificati on) on Tue10/04/22 at 2045, Until Discontinu ed, Routine [facility] D5W 0.45% NaCl (1/2NS) IV infusion 1,000 mL 10-05 02:30: 00 Yes 1000mL at 75 mL/hr, 1,000 mL, IV Infusion, CONTINUOUS , Starting on Tue10/04/22 at 2030, Until Discontinu ed, [facility] calcium gluconate 100 mg/mL (10%) injection 1,000 mg 10-05 02:15: 09 Yes 1000mg 1,000 mg, Slow IV Push, PRN - SEE INSTRUCTIO NS, Starting on Tue10/04/22 at 2015, Until Discontinu ed, Routine, magnesium toxicity [facility] magnesium sulfate 4 mEq/mL (50 %) injection 32.48 mEq 10-05 02:15: 09 Yes 4g 32.48 mEq (4 g), Slow IV Push, PRN - SEE INSTRUCTIO NS, Starting on Tue10/04/22 at 2014, Until Discontinu ed, Routine, For seizure activity (patient not on magnesium sulfate) [facility] magnesium sulfate 4 mEq/mL (50 %) injection 16.24 mEq 10-05 02:15: 09 Yes 2g 16.24 mEq (2 g), Slow IV Push, PRN - SEE INSTRUCTIO NS, 2 doses, Starting on Tue10/04/22 at 2014, Until Discontinu ed, Routine, For seizure activity (patient already on magnesium sulfate) [facility] lactated ringers IV infusion 500 mL 10-05 02:12: 28 Yes 500mL at 999 mL/hr, 500 mL, IV Infusion, PRN - SEE INSTRUCTIO NS, Starting on Tue10/04/22 at 2011, Until Discontinu ed, Routine [facility] D5W-LR IV infusion 1,000 mL 10-05 02:12: 28 Yes 1000mL at 1-125 mL/hr, IV Infusion, TITRATE, Starting on Tue10/04/22 at 2011, Until Discontinu ed, Routine [facility] acetaminoph en (TYLENOL) tablet 1,000 mg 10-05 02:00: 00 10-05 01:20 :00 No 1000mg 1,000 mg, Oral, ONCE, 1 dose, On Tue10/04/22 at 1999, Routine [facility] foLIC acid (FOLATE) tablet 1 mg 09-26 15:00: 00 Yes 1mg 1 mg, Oral, DAILY, First dose on Tue09/26/22 at 0900, Until Discontinu ed, Routine [facility] ferrous sulfate tablet 325 mg 09-26 02:00: 00 Yes 325mg 325 mg, Oral, BID, First dose on 09/25/22 at 2000, Until Discontinu ed, Routine [facility] ascorbic acid (vitamin C) (VITAMIN C) tablet 500 mg 09-26 02:00: 00 Yes 500mg 500 mg, Oral, BID, First dose on 09/25/22 at 2000, Until Discontinu ed, Routine [facility] vitamin w/FA tablet 09-26 00:00: 00 Yes [id number] 1{tbl} Take 1 tablet by mouth in the morning. [facility] docusate 100 mg capsule 09-26 00:00: 00 Yes [id number] 200mg Take 2 capsules by mouth once daily as needed for Constipati on. [facility] ferrous sulfate 325 mg (65 mg iron) tablet 09-26 00:00: 00 Yes [id number] 325mg Take 1 tablet by mouth in the morning and 1 tablet at noon and 1 tablet in the evening. Take with meals. [facility] vitamin w/FA tablet 09-26 00:00: 00 Yes [id number] 1{tbl} Take 1 tablet by mouth in the morning. [facility] ibuprofen 600 mg tablet 09-26 00:00: 00 11-09 00:00 :00 No [id number] 600mg Take 1 tablet by mouth every 6 (six) hours as needed (Pain). Take with food or milk. [facility] ketorolac (TORADOL) injection 30 mg 09-25 17:48: 26 09-28 05:59 :00 No 30mg 30 mg, Slow IV Push, PRN, 1 dose, Starting on 09/25/22 at 1148, Until 09/27/22 at 2359, Routine, Pain (scale 4-6) [facility] nalbuphine (NUBAIN) injection 5 mg 09-25 17:47: 37 Yes 5mg 5 mg, Intravenou s, PRN, 1 dose, Starting on 09/25/22 at 1147, Until Discontinu ed, Routine, itching [facility] naloxone (NARCAN) injection 0.4 mg 09-25 17:47: 37 09-28 00:14 :19 No .4mg 0.4 mg, Slow IV Push, PRN - SEE INSTRUCTIO NS, Starting on 09/25/22 at 1147, Until 09/27/22 at 1814, Routine, Analgesia Recovery [facility] bupivacaine (preserv free) (SENSORCAIN E MPF) 0.25 % (2.5 mg/mL) injection 09-25 17:33: 00 Yes PRN, Starting on 09/25/22 at 1133, Until Discontinu ed, Routine, Intra-op [facility] HYDROcodone -acetaminop hen (NORCO 5) 5-325 mg tablet 2 tablet 09-25 16:56: 28 Yes 2{tbl} 2 tablet, Oral, Q6HPRN, Starting on 09/25/22 at 1056, Until Discontinu ed, Routine, Pain (scale 7-10) [facility] HYDROcodone -acetaminop hen (NORCO 5) 5-325 mg tablet 1 tablet 09-25 16:56: 27 Yes 1{tbl} 1 tablet, Oral, Q6HPRN, Starting on 09/25/22 at 1056, Until Discontinu ed, Routine, Pain (scale 4-6) [facility] sodium citrate-cit meghana acid (BICITRA) 500-334 mg/5 mL solution 09-25 16:52: 00 Yes PRN, Starting on 09/25/22 at 1052, Until Discontinu ed, Routine, Intra-op [facility] rho(D) immune globulin (RHOGAM) syringe 300 mcg 09-25 08:29: 14 Yes 300ug 300 mcg, Intramuscu lar, ONCE, For 1 dose, Conditiona l, Routine [facility] HYDROcodone -acetaminop hen (NORCO 5) 5-325 mg tablet 1 tablet 09-25 08:29: 10 Yes 1{tbl} 1 tablet, Oral, Q6HPRN, Starting on 09/25/22 at 0229, Until Discontinu ed, Routine, Pain (scale 7-10) [facility] ibuprofen (IBU) tablet 600 mg 09-25 08:29: 10 Yes 600mg 600 mg, Oral, Q6HPRN, Starting on 09/25/22 at 228, Until Discontinu ed, Routine, Pain (scale 4-6) [facility] acetaminoph en (TYLENOL) tablet 650 mg 09-25 08:29: 10 Yes 650mg 650 mg, Oral, Q6HPRN, Starting on 09/25/22 at 228, Until Discontinu ed, Routine, Pain (scale 1-3) [facility] diphenhydrA MINE (BENADRYL) tablet 25 mg 09-25 08:29: 10 Yes 25mg 25 mg, Oral, Q6HPRN, Starting on 09/25/22 at 228, Until Discontinu ed, Routine, Sleep, Itching [facility] ondansetron (ZOFRAN (PF)) injection 4 mg 09-25 08:29: 10 Yes 4mg 4 mg, Slow IV Push, Q8HPRN, Starting on 09/25/22 at 228, Until Discontinu ed, Routine, Nausea and Vomiting (N/V) [facility] simethicone (GAS RELIEF (SIMETHICON E)) chewable tablet 160 mg 09-25 08:29: 10 Yes 160mg 160 mg, Oral, PC+HSPRN, Starting on 09/25/22 at 228, Until Discontinu ed, Routine, Gas [facility] docusate (COLACE) capsule 200 mg 09-25 08:29: 10 Yes 200mg 200 mg, Oral, QDAILYPRN, Starting on 09/25/22 at 022, Until Discontinu ed, Routine, Constipati on [facility] magnesium hydroxide (MILK OF MAGNESIA) 400 mg/5 mL suspension 30 mL 09-25 08:29: 10 Yes 30mL 30 mL, Oral, QDAILYPRN, Starting on 09/25/22 at 022, Until Discontinu ed, Routine, Constipati on [facility] benzocaine- menthol (DERMOPLAST ) 20-0.5 % topical spray 09-25 08:29: 10 Yes Topical, PRN, Starting on 09/25/22 at 0229, Until Discontinu ed, Routine, Perineum discomfort [facility] labetaloL (NORMODYNE) tablet 100 mg 09-25 02:00: 00 Yes 100mg 100 mg, Oral, BID, First dose on Tue09/24/22 at 2000, Until Discontinu ed, Routine [facility] ropivacaine 0.2 % (NAROPIN (PF)) epidural infusion 09-24 21:52: 00 09-25 07:44 :55 No Epidural, CONTINUOUS PRN, Starting on Tue09/24/22 at 1552, Until Discontinu ed, Routine, Intra-op [facility] lidocaine-e pinephrine (XYLOCAINE W/EPINEPHRI NE) 1.5 %-1:200,000 injection 09-24 21:51: 00 09-25 07:44 :55 No Intraderma l, ONCE INTRA PROCEDURE, Starting on Tue09/24/22 at 1551, Until Discontinu ed, Routine, Intra-op [facility] lactated ringers IV infusion 500 mL 09-24 21:45: 00 09-24 22:17 :53 No 500mL at 999 mL/hr, 500 mL, IV Infusion, ONCE, 1 dose, On Tue09/24/22 at 1545, Routine [facility] sodium citrate-cit meghana acid (BICITRA) 500-334 mg/5 mL solution 30 mL 09-24 20:48: 29 09-24 21:46 :00 No 30mL 30 mL, Oral, PRE-PROCED URE ONCE, 1 dose, Starting on Tue09/24/22 at 1448, Until Tue09/24/22 at 1546, Routine, Surgery/Pr ocedure [facility] D5W-LR IV infusion 1,000 mL 09-24 14:20: 26 09-25 08:29 :12 No 1000mL at 1-125 mL/hr, IV Infusion, TITRATE, Starting on Tue09/24/22 at 0820, Until Tue09/25/22 at 0229, Routine [facility] azithromyci n (ZITHROMAX) 500 mg tablet 2- 00:00: 00 09-18 05:59 :00 No [id number] 01 1000mg Take 2 tablets by mouth once now for 1 dose. [facility] azithromyci n (ZITHROMAX) 500 mg tablet 2- 00:00: 00 09-17 05:59 :00 No [id number] 01 1000mg Take 2 tablets by mouth once now for 1 dose. [facility] Iron Fum & P-FA-Vit B & C No.9 (INTEGRA PLUS) 125 mg iron- 1 mg Cap 2021-08- 00:00: 00 09-26 00:00 :00 No [id number] 1{lynu le} Take 1 capsule by mouth daily. [facility] acetaminoph en/diphenhy dramine (TYLENOL PM ORAL) 2021-08 08:22: 10 07-15 00:00 :00 No Take by mouth. [facility] labetaloL 100 mg tablet 2021-08 2 00:00: 00 10-07 00:00 :00 No [id number] 100mg Take 1 tablet by mouth in the morning and 1 tablet in the evening. [facility] acetaminoph en/diphenhy dramine (TYLENOL PM ORAL) 9-26 08:50: 38 Yes Take by mouth. [facility] labetaloL 100 mg tablet 8-29 00:00: 00 07-12 05:59 :00 No [id number] 100mg Take 1 tablet by mouth in the morning and 1 tablet in the evening. Do all this for 90 days. [facility] acetaminoph en/diphenhy dramine (TYLENOL PM ORAL) 03-01 10:55: 57 Yes Take by mouth. [facility] proMETHazin e 25 mg tablet 03-01 00:00: 00 07-15 00:00 :00 No [id number] 25mg Take 1 tablet by mouth every 6 (six) hours as needed for Nausea and Vomiting (N/V). [facility] Immunizations Ordered Immunization Name Filled Immunization Name Date Status Comments Source TDAP 2022-07-29 00:00:[address] [facility] TDAP 2022-07-29 00:00:[address] [facility] TDAP 2022-07-29 00:00:[address] [facility] TDAP 2022-07-29 00:00:[address] [facility] TDAP 2022-07-29 00:00:[address] [facility] TDAP 2022-07-29 00:00:[address] [facility] TDAP 2022-07-29 00:00:[address] [facility] TDAP 2022-07-29 00:00:[address] [facility] TDAP 2022-07-29 00:00:[address] [facility] TDAP 2022-07-29 00:00:[address] [facility] TDAP 2022-07-29 00:00:[address] [facility] TDAP 2022-07-29 00:00:[address] [facility] TDAP 2022-07-29 00:00:[address] [facility] TDAP 2022-07-29 00:00:[address] [facility] TDAP 2022-07-29 00:00:[address] [facility] TDAP 2022-07-29 00:00:[address] [facility] TDAP 2022-07-29 00:00:[address] [facility] TDAP 2022-07-29 00:00:[address] [facility] TDAP 2022-07-29 00:00:[address] [facility] TDAP 2022-07-29 00:00:[address] [facility] TDAP 2022-07-29 00:00:[address] [facility] TDAP 2022-07-29 00:00:[address] [facility] TDAP 2022-07-29 00:00:[address] [facility] TDAP 2022-07-29 00:00:[address] [facility] TDAP 2022-07-29 00:00:[address] [facility] TDAP 2022-07-29 00:00:[address] [facility] TDAP 2022-07-29 00:00:[address] [facility] TDAP 2022-07-29 00:00:[address] [facility] TDAP 2022-07-29 00:00:[address] [facility] SARS-COV-2 COVID-19 MODERNA 0.25ML BOOSTER VACCINE 2021-10-13 00:00:[address] [facility] SARS-COV-2 COVID-19 MODERNA 0.25ML BOOSTER VACCINE 2021-10-13 00:00:[address] [facility] SARS-COV-2 COVID-19 MODERNA 0.25ML BOOSTER VACCINE 2021-10-13 00:00:[address] [facility] SARS-COV-2 COVID-19 MODERNA 0.25ML BOOSTER VACCINE 2021-10-13 00:00:[address] [facility] SARS-COV-2 COVID-19 MODERNA 0.25ML BOOSTER VACCINE 2021-10-13 00:00:[address] [facility] SARS-COV-2 COVID-19 MODERNA 0.25ML BOOSTER VACCINE 2021-10-13 00:00:[address] [facility] SARS-COV-2 COVID-19 MODERNA 0.25ML BOOSTER VACCINE 2021-10-13 00:00:[address] [facility] SARS-COV-2 COVID-19 MODERNA 0.25ML BOOSTER VACCINE 2021-10-13 00:00:[address] [facility] SARS-COV-2 COVID-19 MODERNA 0.25ML BOOSTER VACCINE 2021-10-13 00:00:[address] [facility] SARS-COV-2 COVID-19 MODERNA 0.25ML BOOSTER VACCINE 2021-10-13 00:00:[address] [facility] SARS-COV-2 COVID-19 MODERNA 0.25ML BOOSTER VACCINE 2021-10-13 00:00:[address] [facility] SARS-COV-2 COVID-19 MODERNA 0.25ML BOOSTER VACCINE 2021-10-13 00:00:[address] [facility] SARS-COV-2 COVID-19 MODERNA 0.25ML BOOSTER VACCINE 2021-10-13 00:00:[address] [facility] SARS-COV-2 COVID-19 MODERNA 0.25ML BOOSTER VACCINE 2021-10-13 00:00:[address] [facility] SARS-COV-2 COVID-19 MODERNA 0.25ML BOOSTER VACCINE 2021-10-13 00:00:[address] [facility] SARS-COV-2 COVID-19 MODERNA 0.25ML BOOSTER VACCINE 2021-10-13 00:00:[address] [facility] SARS-COV-2 COVID-19 MODERNA 0.25ML BOOSTER VACCINE 2021-10-13 00:00:[address] [facility] SARS-COV-2 COVID-19 MODERNA 0.25ML BOOSTER VACCINE 2021-10-13 00:00:[address] [facility] SARS-COV-2 COVID-19 MODERNA 0.25ML BOOSTER VACCINE 2021-10-13 00:00:[address] [facility] SARS-COV-2 COVID-19 MODERNA 0.25ML BOOSTER VACCINE 2021-10-13 00:00:[address] [facility] SARS-COV-2 COVID-19 MODERNA 0.25ML BOOSTER VACCINE 2021-10-13 00:00:[address] [facility] SARS-COV-2 COVID-19 MODERNA 0.25ML BOOSTER VACCINE 2021-10-13 00:00:[address] [facility] SARS-COV-2 COVID-19 MODERNA 0.25ML BOOSTER VACCINE 2021-10-13 00:00:[address] [facility] SARS-COV-2 COVID-19 MODERNA 0.25ML BOOSTER VACCINE 2021-10-13 00:00:[address] [facility] SARS-COV-2 COVID-19 MODERNA 0.25ML BOOSTER VACCINE 2021-10-13 00:00:[address] [facility] SARS-COV-2 COVID-19 MODERNA 0.25ML BOOSTER VACCINE 2021-10-13 00:00:[address] [facility] SARS-COV-2 COVID-19 MODERNA 0.25ML BOOSTER VACCINE 2021-10-13 00:00:[address] [facility] SARS-COV-2 COVID-19 MODERNA 0.25ML BOOSTER VACCINE 2021-10-13 00:00:[address] [facility] SARS-COV-2 COVID-19 MODERNA 0.25ML BOOSTER VACCINE 2021-10-13 00:00:[address] [facility] SARS-COV-2 COVID-19 MODERNA 0.25ML BOOSTER VACCINE 2021-10-13 00:00:[address] [facility] SARS-COV-2 COVID-19 MODERNA 0.25ML BOOSTER VACCINE 2021-10-13 00:00:[address] [facility] SARS-COV-2 COVID-19 MODERNA 0.25ML BOOSTER VACCINE 2021-10-13 00:00:[address] [facility] SARS-COV-2 COVID-19 MODERNA 0.25ML BOOSTER VACCINE 2021-10-13 00:00:[address] [facility] SARS-COV-2 COVID-19 MODERNA 0.25ML BOOSTER VACCINE 2021-10-13 00:00:[address] [facility] SARS-COV-2 COVID-19 MODERNA 0.25ML BOOSTER VACCINE 2021-10-13 00:00:[address] [facility] SARS-COV-2 COVID-19 MODERNA 0.25ML BOOSTER VACCINE 2021-10-13 00:00:[address] [facility] SARS-COV-2 COVID-19 MODERNA 0.25ML BOOSTER VACCINE 2021-10-13 00:00:[address] [facility] SARS-COV-2 COVID-19 MODERNA 0.25ML BOOSTER VACCINE 2021-10-13 00:00:[address] [facility] SARS-COV-2 COVID-19 MODERNA 0.25ML BOOSTER VACCINE 2021-10-13 00:00:[address] [facility] SARS-COV-2 COVID-19 MODERNA 0.25ML BOOSTER VACCINE 2021-10-13 00:00:[address] [facility] SARS-COV-2 COVID-19 MODERNA 0.25ML BOOSTER VACCINE 2021-10-13 00:00:[address] [facility] SARS-COV-2 COVID-19 MODERNA 0.25ML BOOSTER VACCINE 2021-10-13 00:00:[address] [facility] SARS-COV-2 COVID-19 MODERNA 0.25ML BOOSTER VACCINE 2021-10-13 00:00:[address] [facility] SARS-COV-2 COVID-19 MODERNA 12+ YRS VACCINE 2021-02-18 00:00:[address] [facility] SARS-COV-2 COVID-19 MODERNA 12+ YRS VACCINE 2021-02-18 00:00:[address] [facility] SARS-COV-2 COVID-19 MODERNA 12+ YRS VACCINE 2021-02-18 00:00:[address] [facility] SARS-COV-2 COVID-19 MODERNA 12+ YRS VACCINE 2021-02-18 00:00:[address] [facility] SARS-COV-2 COVID-19 MODERNA 12+ YRS VACCINE 2021-02-18 00:00:[address] [facility] SARS-COV-2 COVID-19 MODERNA 12+ YRS VACCINE 2021-02-18 00:00:[address] [facility] SARS-COV-2 COVID-19 MODERNA 12+ YRS VACCINE 2021-02-18 00:00:[address] [facility] SARS-COV-2 COVID-19 MODERNA 12+ YRS VACCINE 2021-02-18 00:00:[address] [facility] SARS-COV-2 COVID-19 MODERNA 12+ YRS VACCINE 2021-02-18 00:00:[address] [facility] SARS-COV-2 COVID-19 MODERNA 12+ YRS VACCINE 2021-02-18 00:00:[address] [facility] SARS-COV-2 COVID-19 MODERNA 12+ YRS VACCINE 2021-02-18 00:00:[address] [facility] SARS-COV-2 COVID-19 MODERNA 12+ YRS VACCINE 2021-02-18 00:00:[address] [facility] SARS-COV-2 COVID-19 MODERNA 12+ YRS VACCINE 2021-02-18 00:00:[address] [facility] SARS-COV-2 COVID-19 MODERNA 12+ YRS VACCINE 2021-02-18 00:00:[address] [facility] SARS-COV-2 COVID-19 MODERNA 12+ YRS VACCINE 2021-02-18 00:00:[address] [facility] SARS-COV-2 COVID-19 MODERNA 12+ YRS VACCINE 2021-02-18 00:00:[address] [facility] SARS-COV-2 COVID-19 MODERNA 12+ YRS VACCINE 2021-02-18 00:00:[address] [facility] SARS-COV-2 COVID-19 MODERNA 12+ YRS VACCINE 2021-02-18 00:00:[address] [facility] SARS-COV-2 COVID-19 MODERNA 12+ YRS VACCINE 2021-02-18 00:00:[address] [facility] SARS-COV-2 COVID-19 MODERNA 12+ YRS VACCINE 2021-02-18 00:00:[address] [facility] SARS-COV-2 COVID-19 MODERNA 12+ YRS VACCINE 2021-02-18 00:00:[address] [facility] SARS-COV-2 COVID-19 MODERNA 12+ YRS VACCINE 2021-02-18 00:00:[address] [facility] SARS-COV-2 COVID-19 MODERNA 12+ YRS VACCINE 2021-02-18 00:00:[address] [facility] SARS-COV-2 COVID-19 MODERNA 12+ YRS VACCINE 2021-02-18 00:00:[address] [facility] SARS-COV-2 COVID-19 MODERNA 12+ YRS VACCINE 2021-02-18 00:00:[address] [facility] SARS-COV-2 COVID-19 MODERNA 12+ YRS VACCINE 2021-02-18 00:00:[address] [facility] SARS-COV-2 COVID-19 MODERNA 12+ YRS VACCINE 2021-02-18 00:00:[address] [facility] SARS-COV-2 COVID-19 MODERNA 12+ YRS VACCINE 2021-02-18 00:00:[address] [facility] SARS-COV-2 COVID-19 MODERNA 12+ YRS VACCINE 2021-02-18 00:00:[address] [facility] SARS-COV-2 COVID-19 MODERNA 12+ YRS VACCINE 2021-02-18 00:00:[address] [facility] SARS-COV-2 COVID-19 MODERNA 12+ YRS VACCINE 2021-02-18 00:00:[address] [facility] SARS-COV-2 COVID-19 MODERNA 12+ YRS VACCINE 2021-02-18 00:00:[address] [facility] SARS-COV-2 COVID-19 MODERNA 12+ YRS VACCINE 2021-02-18 00:00:[address] [facility] SARS-COV-2 COVID-19 MODERNA 12+ YRS VACCINE 2021-02-18 00:00:[address] [facility] SARS-COV-2 COVID-19 MODERNA 12+ YRS VACCINE 2021-02-18 00:00:[address] [facility] SARS-COV-2 COVID-19 MODERNA 12+ YRS VACCINE 2021-02-18 00:00:[address] [facility] SARS-COV-2 COVID-19 MODERNA 12+ YRS VACCINE 2021-02-18 00:00:[address] [facility] SARS-COV-2 COVID-19 MODERNA 12+ YRS VACCINE 2021-02-18 00:00:[address] [facility] SARS-COV-2 COVID-19 MODERNA 12+ YRS VACCINE 2021-02-18 00:00:[address] [facility] SARS-COV-2 COVID-19 MODERNA 12+ YRS VACCINE 2021-02-18 00:00:[address] [facility] SARS-COV-2 COVID-19 MODERNA 12+ YRS VACCINE 2021-02-18 00:00:[address] [facility] SARS-COV-2 COVID-19 MODERNA 12+ YRS VACCINE 2021-02-18 00:00:[address] [facility] SARS-COV-2 COVID-19 MODERNA 12+ YRS VACCINE 2021-02-18 00:00:[address] [facility] SARS-COV-2 COVID-19 MODERNA 12+ YRS VACCINE 2021-01-19 00:00:[address] [facility] SARS-COV-2 COVID-19 MODERNA 12+ YRS VACCINE 2021-01-19 00:00:[address] [facility] SARS-COV-2 COVID-19 MODERNA 12+ YRS VACCINE 2021-01-19 00:00:[address] [facility] SARS-COV-2 COVID-19 MODERNA 12+ YRS VACCINE 2021-01-19 00:00:[address] [facility] SARS-COV-2 COVID-19 MODERNA 12+ YRS VACCINE 2021-01-19 00:00:[address] [facility] SARS-COV-2 COVID-19 MODERNA 12+ YRS VACCINE 2021-01-19 00:00:[address] [facility] SARS-COV-2 COVID-19 MODERNA 12+ YRS VACCINE 2021-01-19 00:00:[address] [facility] SARS-COV-2 COVID-19 MODERNA 12+ YRS VACCINE 2021-01-19 00:00:[address] [facility] SARS-COV-2 COVID-19 MODERNA 12+ YRS VACCINE 2021-01-19 00:00:[address] [facility] SARS-COV-2 COVID-19 MODERNA 12+ YRS VACCINE 2021-01-19 00:00:[address] [facility] SARS-COV-2 COVID-19 MODERNA 12+ YRS VACCINE 2021-01-19 00:00:[address] [facility] SARS-COV-2 COVID-19 MODERNA 12+ YRS VACCINE 2021-01-19 00:00:[address] [facility] SARS-COV-2 COVID-19 MODERNA 12+ YRS VACCINE 2021-01-19 00:00:[address] [facility] SARS-COV-2 COVID-19 MODERNA 12+ YRS VACCINE 2021-01-19 00:00:[address] [facility] SARS-COV-2 COVID-19 MODERNA 12+ YRS VACCINE 2021-01-19 00:00:[address] [facility] SARS-COV-2 COVID-19 MODERNA 12+ YRS VACCINE 2021-01-19 00:00:[address] [facility] SARS-COV-2 COVID-19 MODERNA 12+ YRS VACCINE 2021-01-19 00:00:[address] [facility] SARS-COV-2 COVID-19 MODERNA 12+ YRS VACCINE 2021-01-19 00:00:[address] [facility] SARS-COV-2 COVID-19 MODERNA 12+ YRS VACCINE 2021-01-19 00:00:[address] [facility] SARS-COV-2 COVID-19 MODERNA 12+ YRS VACCINE 2021-01-19 00:00:[address] [facility] SARS-COV-2 COVID-19 MODERNA 12+ YRS VACCINE 2021-01-19 00:00:[address] [facility] SARS-COV-2 COVID-19 MODERNA 12+ YRS VACCINE 2021-01-19 00:00:[address] [facility] SARS-COV-2 COVID-19 MODERNA 12+ YRS VACCINE 2021-01-19 00:00:[address] [facility] SARS-COV-2 COVID-19 MODERNA 12+ YRS VACCINE 2021-01-19 00:00:[address] [facility] SARS-COV-2 COVID-19 MODERNA 12+ YRS VACCINE 2021-01-19 00:00:[address] [facility] SARS-COV-2 COVID-19 MODERNA 12+ YRS VACCINE 2021-01-19 00:00:[address] [facility] SARS-COV-2 COVID-19 MODERNA 12+ YRS VACCINE 2021-01-19 00:00:[address] [facility] SARS-COV-2 COVID-19 MODERNA 12+ YRS VACCINE 2021-01-19 00:00:[address] [facility] SARS-COV-2 COVID-19 MODERNA 12+ YRS VACCINE 2021-01-19 00:00:[address] [facility] SARS-COV-2 COVID-19 MODERNA 12+ YRS VACCINE 2021-01-19 00:00:[address] [facility] SARS-COV-2 COVID-19 MODERNA 12+ YRS VACCINE 2021-01-19 00:00:[address] [facility] SARS-COV-2 COVID-19 MODERNA 12+ YRS VACCINE 2021-01-19 00:00:[address] [facility] SARS-COV-2 COVID-19 MODERNA 12+ YRS VACCINE 2021-01-19 00:00:[address] [facility] SARS-COV-2 COVID-19 MODERNA 12+ YRS VACCINE 2021-01-19 00:00:[address] [facility] SARS-COV-2 COVID-19 MODERNA 12+ YRS VACCINE 2021-01-19 00:00:[address] [facility] SARS-COV-2 COVID-19 MODERNA 12+ YRS VACCINE 2021-01-19 00:00:[address] [facility] SARS-COV-2 COVID-19 MODERNA 12+ YRS VACCINE 2021-01-19 00:00:[address] [facility] SARS-COV-2 COVID-19 MODERNA 12+ YRS VACCINE 2021-01-19 00:00:[address] [facility] SARS-COV-2 COVID-19 MODERNA 12+ YRS VACCINE 2021-01-19 00:00:[address] [facility] SARS-COV-2 COVID-19 MODERNA 12+ YRS VACCINE 2021-01-19 00:00:[address] [facility] SARS-COV-2 COVID-19 MODERNA 12+ YRS VACCINE 2021-01-19 00:00:[address] [facility] SARS-COV-2 COVID-19 MODERNA 12+ YRS VACCINE 2021-01-19 00:00:[address] [facility] SARS-COV-2 COVID-19 MODERNA 12+ YRS VACCINE 2021-01-19 00:00:[address] [facility] SARS-COV-2 COVID-19 MODERNA 12+ YRS VACCINE Unknown Completed [facility] TDAP Unknown Completed [facility] SARS-COV-2 COVID-19 MODERNA 12+ YRS VACCINE Unknown Completed [facility] TDAP Unknown Completed [facility] SARS-COV-2 COVID-19 MODERNA 12+ YRS VACCINE Unknown Completed [facility] TDAP Unknown Completed [facility] SARS-COV-2 COVID-19 MODERNA 12+ YRS VACCINE Unknown Completed [facility] TDAP Unknown Completed [facility] Vital Signs Vital Name Observation Time Observation Value Comments S ource Systolic blood pressure 2022-11-09 23:15:00 123 mm[Hg] [facility] Diastolic blood pressure 2022-11-09 23:15:00 84 mm[Hg] [facility] Respiratory rate 2022-11-09 23:15:00 18 /min [facility] Oxygen saturation in Arterial blood by Pulse oximetry 2022-11-09 23:15:00 99 /min [facility] Body temperature 2022-11-09 21:00:[address] [facility] Heart rate 2022-11-09 14:49:00 64 /min [facility] Body height 2022-11-09 14:49:00 160 cm [facility] Body weight 2022-11-09 14:49:00 90.7 kg [facility] BMI 2022-11-09 14:49:00 35.42 kg/m2 [facility] Systolic blood pressure 2022-11-09 14:49:00 134 mm[Hg] [facility] Diastolic blood pressure 2022-11-09 14:49:00 79 mm[Hg] [facility] Heart rate 2022-11-09 14:49:00 64 /min [facility] Body temperature 2022-11-09 14:49:[address] [facility] Respiratory rate 2022-11-09 14:49:00 16 /min [facility] Body height 2022-11-09 14:49:00 160 cm [facility] Body weight 2022-11-09 14:49:00 90.7 kg [facility] BMI 2022-11-09 14:49:00 35.42 kg/m2 [facility] Oxygen saturation in Arterial blood by Pulse oximetry 2022-11-09 14:49:00 100 /min [facility] Systolic blood pressure 2022-10-28 18:49:00 129 mm[Hg] [place] [facility] Diastolic blood pressure 2022-10-28 18:49:00 94 mm[Hg] [facility] Heart rate 2022-10-28 18:49:00 74 /min [facility] Body temperature 2022-10-28 18:47:[address] [facility] Respiratory rate 2022-10-28 18:47:00 18 /min [facility] Body height 2022-10-28 18:47:00 160 cm [facility] Body weight 2022-10-28 18:47:00 91.218 kg [facility] BMI 2022-10-28 18:47:00 35.62 kg/m2 [facility] Systolic blood pressure 2022-10-18 21:56:00 125 mm[Hg] [facility] Diastolic blood pressure 2022-10-18 21:56:00 90 mm[Hg] [facility] Heart rate 2022-10-18 21:56:00 71 /min [facility] Body temperature 2022-10-18 21:55:[address] [facility] Respiratory rate 2022-10-18 21:55:00 18 /min [facility] Body height 2022-10-18 21:55:00 160 cm [facility] Body weight 2022-10-18 21:55:00 91.354 kg [facility] BMI 2022-10-18 21:55:00 35.68 kg/m2 [facility] Systolic blood pressure 2022-10-07 21:39:00 129 mm[Hg] [facility] Diastolic blood pressure 2022-10-07 21:39:00 91 mm[Hg] [facility] Heart rate 2022-10-07 21:39:00 79 /min [facility] Body temperature 2022-10-07 21:39:[address] [facility] Respiratory rate 2022-10-07 21:39:00 20 /min [facility] Oxygen saturation in Arterial blood by Pulse oximetry 2022-10-07 21:39:00 100 /min [facility] Systolic blood pressure 2022-10-04 14:46:00 149 mm[Hg] [facility] Diastolic blood pressure 2022-10-04 14:46:00 100 mm[Hg] [facility] Heart rate 2022-10-04 14:45:00 65 [facility]-04 14:45:00 18 /min [facility] Body height 2022-10-04 14:45:00 160 cm [facility] Body weight 2022-10-04 14:45:00 90.901 kg [facility] BMI 2022-10-04 14:45:00 35.50 kg/m2 [facility] Systolic blood pressure 2022-09-27 14:50:00 133 mm[Hg] [facility] Diastolic blood pressure 2022-09-27 14:50:00 84 mm[Hg] [facility] Heart rate 2022-09-27 14:50:00 68 /min [facility] Body temperature 2022-09-27 14:50:[address] [facility] Respiratory rate 2022-09-27 14:50:00 17 /min [facility] Oxygen saturation in Arterial blood by Pulse oximetry 2022-09-27 14:50:00 99 /min [facility] Body height 2022-09-24 14:05:00 160 cm [facility] Body weight 2022-09-24 14:05:00 94.802 kg [facility] BMI 2022-09-24 14:05:00 37.03 kg/m2 [facility] Systolic blood pressure 2022-09-25 14:21:00 141 mm[Hg] [facility] Diastolic blood pressure 2022-09-25 14:21:00 88 mm[Hg] [facility] Heart rate 2022-09-25 14:21:00 66 /min [facility] Body temperature 2022-09-25 14:21:[address] [facility] Respiratory rate 2022-09-25 14:21:00 16 /min [facility] Oxygen saturation in Arterial blood by Pulse oximetry 2022-09-25 14:21:00 99 /min [facility] Body height 2022-09-24 14:05:00 160 cm [facility] Body weight 2022-09-24 14:05:00 94.802 kg [facility] BMI 2022-09-24 14:05:00 37.03 kg/m2 [facility] Systolic blood pressure 2022-09-21 14:38:00 126 mm[Hg] [facility] [facility] Diastolic blood pressure 2022-09-21 14:38:00 85 mm[Hg] [facility] Heart rate 2022-09-21 14:38:00 77 /min [facility] Body temperature 2022-09-21 14:37:[address] [facility] Respiratory rate 2022-09-21 14:37:00 18 /min [facility] Body height 2022-09-21 14:37:00 160 cm [facility] Body weight 2022-09-21 14:37:00 94.348 [facility] BMI 2022-09-21 14:37:00 36.85 kg/m2 [facility] Systolic blood pressure 2022-09-16 14:22:00 133 mm[Hg] [place] [facility] Diastolic blood pressure 2022-09-16 14:22:00 85 mm[Hg] [facility] Heart rate 2022-09-16 14:22:00 89 /min [facility] Body temperature 2022-09-16 14:22:[address] [facility] Respiratory rate 2022-09-16 14:22:00 19 /min [facility] Body height 2022-09-16 14:22:00 160 cm [facility] Body weight 2022-09-16 14:22:00 95.754 kg [facility] BMI 2022-09-16 14:22:00 37.39 kg/m2 [facility] Systolic blood pressure 2022-09-14 16:36:00 134 mm[Hg] [facility] Diastolic blood pressure 2022-09-14 16:36:00 79 mm[Hg] [facility] Heart rate 2022-09-14 16:36:00 86 /min [facility] Body temperature 2022-09-14 16:36:[address] [facility] Respiratory rate 2022-09-14 16:36:00 18 /min [facility] Body height 2022-09-14 16:36:00 160 cm [facility] Body weight 2022-09-14 16:36:00 95.074 kg [facility] BMI 2022-09-14 16:36:00 37.13 kg/m2 [facility] Systolic blood pressure 2022-09-09 21:31:00 125 mm[Hg] [place] [facility] Diastolic blood pressure 2022-09-09 21:31:00 88 mm[Hg] [facility] Heart rate 2022-09-09 21:31:00 81 /min [facility] Body temperature 2022-09-09 21:31:[address] [facility] Respiratory rate 2022-09-09 21:31:00 19 /min [facility] Body height 2022-09-09 21:31:00 160 cm [facility] Body weight 2022-09-09 21:31:00 94.756 kg [facility] BMI 2022-09-09 21:31:00 37.00 kg/m2 [facility] Systolic blood pressure 2022-09-02 20:26:00 124 mm[Hg] [facility] Diastolic blood pressure 2022-09-02 20:26:00 85 mm[Hg] [facility] Heart rate 2022-09-02 20:26:00 86 /min [facility] Body temperature 2022-09-02 20:26:[address] [facility] Respiratory rate 2022-09-02 20:26:00 18 /min [facility] Body height 2022-09-02 20:26:00 160 cm [facility] Body weight 2022-09-02 20:26:00 95.766 kg [facility] BMI 2022-09-02 20:26:00 37.40 kg/m2 [facility] Systolic blood pressure 2022-08-31 20:26:00 125 mm[Hg] [facility] Diastolic blood pressure 2022-08-31 20:26:00 79 mm[Hg] [facility] Heart rate 2022-08-31 20:26:00 80 /min [facility] Body temperature 2022-08-31 20:26:[address] [facility] Respiratory rate 2022-08-31 20:26:00 18 /min [facility] Body height 2022-08-31 20:26:00 160 cm [facility] Body weight 2022-08-31 20:26:00 95.34 kg [facility] BMI 2022-08-31 20:26:00 37.23 kg/m2 [facility] Systolic blood pressure 2022-08-26 21:30:00 132 mm[Hg] [facility] Diastolic blood pressure 2022-08-26 21:30:00 81 mm[Hg] [facility] Heart rate 2022-08-26 21:30:00 86 /min [facility] Body temperature 2022-08-26 21:30:[address] [facility] Respiratory rate 2022-08-26 21:30:00 20 /min [facility] Body height 2022-08-26 21:30:00 160 cm [facility] Body weight 2022-08-26 21:30:00 95.437 kg [facility] BMI 2022-08-26 21:30:00 37.27 kg/m2 [facility] Systolic blood pressure 2022-08-24 21:26:00 116 mm[Hg] [facility] Diastolic blood pressure 2022-08-24 21:26:00 78 mm[Hg] [facility] Heart rate 2022-08-24 21:26:00 76 /min [facility] Body temperature 2022-08-24 21:26:[address] [facility] Respiratory rate 2022-08-24 21:26:00 16 /min [facility] Body height 2022-08-24 21:26:00 160 cm [facility] Body weight 2022-08-24 21:26:00 95.255 kg [facility] BMI 2022-08-24 21:26:00 37.20 kg/m2 [facility] Systolic blood pressure 2022-08-19 20:33:00 140 mm[Hg] [facility] Diastolic blood pressure 2022-08-19 20:33:00 87 mm[Hg] [facility] Heart rate 2022-08-19 20:33:00 86 /min [facility] Body temperature 2022-08-19 20:33:[address] [facility] Respiratory rate 2022-08-19 20:33:00 18 /min [facility] Body height 2022-08-19 20:33:00 160 cm [facility] Body weight 2022-08-19 20:33:00 95.482 kg [facility] BMI 2022-08-19 20:33:00 37.29 kg/m2 [facility] Systolic blood pressure 2022-08-16 20:35:00 125 mm[Hg] [facility] Diastolic blood pressure 2022-08-16 20:35:00 82 mm[Hg] [facility] Heart rate 2022-08-16 20:35:00 89 /min [facility] Body temperature 2022-08-16 20:35:[address] [facility] Respiratory rate 2022-08-16 20:35:00 18 /min [facility] Body height 2022-08-16 20:35:00 160 cm [facility] Body weight 2022-08-16 20:35:00 95.284 kg [facility] BMI 2022-08-16 20:35:00 37.21 kg/m2 [facility] Systolic blood pressure 2022-08-02 20:33:00 125 mm[Hg] [facility] Diastolic blood pressure 2022-08-02 20:33:00 78 mm[Hg] [facility] Heart rate 2022-08-02 20:33:00 86 /min [facility] Body temperature 2022-08-02 20:33:[address] [facility] Respiratory rate 2022-08-02 20:33:00 18 /min [facility] Body height 2022-08-02 20:33:00 160 cm [facility] Body weight 2022-08-02 20:33:00 95.425 kg [facility] BMI 2022-08-02 20:33:00 37.27 kg/m2 [facility] Systolic blood pressure 2022-07-29 13:59:00 125 mm[Hg] [facility] Diastolic blood pressure 2022-07-29 13:59:00 81 mm[Hg] [facility] Heart rate 2022-07-29 13:59:00 85 /min [facility] Body temperature 2022-07-29 13:59:[address] [facility] Respiratory rate 2022-07-29 13:59:00 18 /min [facility] Body height 2022-07-29 13:59:00 160 cm [facility] Body weight 2022-07-29 13:59:00 95.851 kg [facility] BMI 2022-07-29 13:59:00 37.43 kg/m2 [facility] Systolic blood pressure 2022-07-15 14:18:00 133 mm[Hg] [facility] Diastolic blood pressure 2022-07-15 14:18:00 82 mm[Hg] [facility] Heart rate 2022-07-15 14:18:00 75 /min [facility] Body temperature 2022-07-15 14:18:[address] [facility] Respiratory rate 2022-07-15 14:18:00 18 /min [facility] Body height 2022-07-15 14:18:00 160 cm [facility] Body weight 2022-07-15 14:18:00 95.261 kg [facility] BMI 2022-07-15 14:18:00 37.20 kg/m2 [facility] Systolic blood pressure 2022-06-25 14:25:00 130 mm[Hg] [facility] Diastolic blood pressure 2022-06-25 14:25:00 80 mm[Hg] [facility] Heart rate 2022-06-25 14:25:00 74 /min [facility] Body temperature 2022-06-25 14:25:[address] [facility] Respiratory rate 2022-06-25 14:25:00 18 /min [facility] Body height 2022-06-25 14:25:00 160 cm [facility] Body weight 2022-06-25 14:25:00 94.49 kg [facility] BMI 2022-06-25 14:25:00 36.90 kg/m2 [facility] Systolic blood pressure 2022-05-28 13:28:00 132 mm[Hg] [facility] Diastolic blood pressure 2022-05-28 13:28:00 81 mm[Hg] [facility] Heart rate 2022-05-28 13:28:00 74 /min [facility] Body temperature 2022-05-28 13:28:[address] [facility] Respiratory rate 2022-05-28 13:28:00 18 /min [facility] Body weight 2022-05-28 13:28:00 92.715 [facility] BMI 2022-05-28 13:28:00 36.21 kg/m2 [facility] Systolic blood pressure 2022-05-10 13:45:00 126 mm[Hg] [facility] Diastolic blood pressure 2022-05-10 13:45:00 88 mm[Hg] [facility] Heart rate 2022-05-10 13:45:00 74 /min [facility] Body temperature 2022-05-10 13:45:[address] [facility] Respiratory rate 2022-05-10 13:45:00 18 /min [facility] Body weight 2022-05-10 13:45:00 92.443 kg [facility] BMI 2022-05-10 13:45:00 36.10 kg/m2 [facility] Systolic blood pressure 2022-04-26 13:51:00 116 mm[Hg] [facility] Diastolic blood pressure 2022-04-26 13:51:00 81 mm[Hg] [facility] Heart rate 2022-04-26 13:51:00 69 /min [facility] Body temperature 2022-04-26 13:51:[address] [facility] Respiratory rate 2022-04-26 13:51:00 18 /min [facility] Body weight 2022-04-26 13:51:00 91.491 kg [facility] BMI 2022-04-26 13:51:00 35.73 kg/m2 [facility] Procedures Procedure Date / Time Performed Performing Clinician Source SALPINGOSTOMY LAPAROSCOPY 2022-11-09 18:37:[address] [facility] CBC WITH DIFF 2022-11-09 15:18:00 Darlene Morillo [facility] HB ABO GROUPING 2022-11-09 15:18:00 [facility] WITH DIFF 2022-11-09 15:18:00 Darlene Morillo [facility] HB ABO GROUPING 2022-11-09 15:18:00 Alise Laughlin Un [facility] POCT TEST 2022-11-09 15:00:[address] [facility] POCT TEST 2022-11-09 15:00:[address] [facility] ASSIGNMENT OF BENEFITS 2022-11-09 14:46:53 Docto r Unassigned, [place] [facility] POCT TEST 2022-10-28 19:23:[address] [facility] DISCLOSURE AND CONSENT, MEDICAL AND SURGICAL PROCEDURES 2022-10-28 05:01:00 Doctor Unassigned, [place] [facility] DISCLOSURE AND CONSENT, MEDICAL AND SURGICAL PROCEDURES 2022-10-28 05:01:00 Doctor Unassigned, [place] [facility] MR BRAIN W WO CONTRAST 2022-10-05 22:49:[address] [facility] LACTATE DEHYDROGENASE 2022-10-05 21:03:00 Monica gong [facility] URIC ACID 2022-10-05 21:03:00 Harriet [facility] COMP. METABOLIC PANEL (60945) 2022-10-05 21:03:00 Cassandra [facility] CBC WITHOUT DIFF 2022-10-05 21:03:[address] [facility] GC & CHLAMYDIA AMPLIFIED ASSAY 2022-10-05 07:52:[address] [facility] SGOT (ASPARTATE AMINO TRANSFER) 2022-10-05 01:46:[address] [facility] CREATININE 2022-10-05 01:46:00 Neel Chanel [facility] ALANINE AMINO TRANSFERASE(SGPT 2022-10-05 01:46:00 Darío [facility] LACTATE DEHYDROGENASE 2022-10-05 01:46:[address] [facility] URIC ACID 2022-10-05 01:46:00 Neel Chanel [facility] CBC WITH DIFF 2022-10-05 01:46:00 Neel [facility] URINALYSIS 2022-10-05 01:46:00 Neel Chanel [facility] HB ABO GROUPING 2022-10-05 01:31:00 Neel Chanel [facility] CBC WITH DIFF 2022-09-26 09:59:00 Sorathia, Surekha [facility] WITH DIFF 2022-09-26 09:59:00 SorathiaDarciSurekha Un [facility] TUBAL LIGATION 2022-09-25 16:34:00 Juan Mitchell [facility] VENOUS CORD GAS 2022-09-25 06:22:[address] [facility] VENOUS CORD GAS 2022-09-25 06:22:[address] [facility] CENTRAL NEURAXIAL BLOCK 2022-09-24 21:53:[address] [facility] CBC WITH DIFF 2022-09-24 14:53:00 [facility] 2022-09-24 14:53:00 [facility]/2 [facility]-AB WITH REFLEX 2022-09-24 14:53:00 [facility] SY[facility]IL[facility]GG/IGM 2022-09-24 14:53:00 Turnil, Moon Navarro [facility] CBC WITH DIFF 2022-09-24 14:53:00 [facility]FACE ANTIGEN 2022-09-24 14:53:00 [facility] HIV 1/2 [facility]-AB WITH REFLEX 2022-09-24 14:53:00 [facility] SYPHILIS [facility]GG/IGM 2022-09-24 14:53:00 Turnil, Moon Navarro [facility] HB ABO GROUPING 2022-09-24 14:34:00 Turnfrankie Moon Viky [facility] RHO (D) IMMUNE GLOBULIN 2022-09-24 14:34:00 Sorathia [facility] HB ABO GROUPING 2022-09-24 14:34:00 [facility]MMUNE GLOBULIN 2022-09-24 14:34:00 Sorathia [facility] NON-STRESS TEST 2022-09-21 15:39:[address] [facility] POCT URINALYSIS 2022-09-21 14:43:[address] [facility] NON-STRESS TEST 2022-09-16 16:49:[address] [facility] POCT URINALYSIS 2022-09-16 00:00:[address] [facility] NON-STRESS TEST 2022-09-14 19:01:[address] [facility] POCT URINALYSIS 2022-09-14 00:00:[address] [facility] NON-STRESS TEST 2022-09-10 01:44:[address] [facility] POCT URINALYSIS 2022-09-09 00:00:[address] [facility] NON-STRESS TEST 2022-09-02 21:29:[address] [facility] POCT URINALYSIS 2022-09-02 20:27:[address] [facility] NON-STRESS TEST 2022-08-31 21:10:[address] [facility] POCT URINALYSIS 2022-08-31 20:27:[address] [facility] NON-STRESS TEST 2022-08-26 21:54:[address] [facility] POCT URINALYSIS 2022-08-26 00:00:[address] [facility] NON-STRESS TEST 2022-08-24 22:10:[address] [facility] POCT URINALYSIS 2022-08-24 00:00:[address] [facility] NON-STRESS TEST 2022-08-19 20:51:[address] [facility] POCT URINALYSIS 2022-08-19 20:34:[address] [facility] NON-STRESS TEST 2022-08-16 21:29:[address] [facility] POCT URINALYSIS 2022-08-16 20:37:[address] [facility] POCT URINALYSIS 2022-08-02 20:35:[address] [facility] STERILIZATION CONSENT FORM 2022-08-02 06:01:00 Doctor Unassigned, [place] [facility] NON-STRESS TEST 2022-07-29 15:40:[address] [facility] TDAP VACCINE, >11 YRS, IM 2022-07-29 14:50:[address] [facility] POCT URINALYSIS 2022-07-29 14:00:[address] [facility] POCT URINALYSIS 2022-07-15 14:34:[address] [facility] POCT URINALYSIS 2022-06-25 14:25:[address] [facility] POCT URINALYSIS 2022-05-28 13:30:[address] [facility] POCT URINALYSIS 2022-05-10 13:53:[address] [facility] POCT URINALYSIS 2022-04-26 13:52:[address] [facility] Encounters Start Date/Time End Date/Time Encounter Type Admission Type Attending [facility] Facility Care Department Encounter ID Source 2023-06-11 00:00:00 2023-06-11 00:00:00 Outpatient [id number] [id number] [facility] [id number] [facility] 2022-11-10 00:00:00 2022-11-10 00:00:00 Patient Secure Msg Dina Ortega [facility] MEDICAL OFFICE BUILDING 1.2.840.114 350.1.13.10 4.2.7.2.686 [id number] [facility] 2022-11-09 09:46:00 2022-11-09 18:36:00 Outpatient R JORDAN BRODY [facility] TALENT ACQUISITION SOUR[employer]ER [id number] [facility] 2022-11-09 09:46:00 2022-11-09 18:36:00 Hospital Encounter Dina Ortega [address]2.840.114 350.1.13.10 4.2.7.2.686 [id number] [facility] 2022-11-09 12:03:00 2022-11-09 15:18:00 Surgery BrodyJordan moreno [facility] 1.0.114 350.1.13.10 4.2.7.2.686 [id number] [facility] 2022-11-09 00:00:00 2022-11-09 00:00:00 Orders Only Doctor Unassigned, [place] [facility] 1.840.114 350.1.13.10 4.2.7.2.686 [id number] [facility] 2022-11-08 14:15:00 2022-11-08 14:15:00 Outpatient R MARY ALMARAZ [facility] [id number] [facility] 2022-11-02 00:00:00 2022-11-02 00:00:00 Patient Secure Msg Doctor Unassigned, [place] [facility] 1.0.114 350.1.13.10 4.2.7.2.686 [id number] [facility] 2022-10-28 13:45:00 2022-10-28 14:48:06 Outpatient R NOEL RAUSCH [facility] [id number] [facility] 2022-10-28 13:45:00 2022-10-28 14:48:06 Office Visit [id number] Noel Rausch [facility] 1.0.114 350.1.13.10 4.2.7.2.686 [id number] [facility] 2022-10-18 15:45:00 2022-10-18 16:25:24 Outpatient R MARY ALMARAZ [facility] [id number] [facility] 2022-10-18 15:45:00 2022-10-18 16:25:24 Routine Visit Mary Almaraz [facility] KNIFE FINISHER [facility] 1.840.114 350.1.13.10 4.2.7.2.686 [id number] [facility] 2022-10-04 18:36:00 2022-10-07 17:25:00 Hospital Encounter Judit Alonso [facility] 1.2840.114 350.1.13.10 4.2.7.2.686 [id number] [facility] 2022-10-04 08:30:00 2022-10-04 08:58:29 Outpatient MARY SCHAEFFER [facility] [id number] [facility] 2022-10-04 08:30:00 2022-10-04 08:58:29 Nurse Visit Visit, [facility] Nurse Mary Almaraz [facility] KNIFE [facility]ER [facility] 1.2840.114 350.1.13.10 4.2.7.2.686 [id number] [facility] 2022-10-04 08:30:00 2022-10-04 08:58:29 Outpatient MARY SCHAEFFER [facility] [id number] [facility] 2022-09-24 07:52:00 2022-09-27 12:49:00 Inpatient P FRANCESHIMANSHU [facility] [id number] [facility] 2022-09-24 07:52:00 2022-09-27 12:49:00 Hospital Encounter FrancesHimanshu [facility] 1.2840.114 350.1.13.10 4.2.7.2.686 [id number] [facility] 2022-09-25 08:05:00 2022-09-25 09:37:00 Surgery Juan Mitchell [facility] 1.2840.114 350.1.13.10 4.2.7.2.686 [id number] [facility] 2022-09-24 15:46:00 2022-09-25 01:30:00 Anesthesia Event Zemmedhun, Gelilla [facility] 1..114 350.1.13.10 4.2.7.2.686 [id number] [facility] 2022-09-23 00:00:00 2022-09-23 00:00:00 Patient Secure Sara Young [facility] KNIFE FINISHER [facility] 1.20.114 350.1.13.10 4.2.7.2.686 [id number] [facility] 2022-09-21 09:00:00 2022-09-21 09:11:44 Outpatient SARA ESTRADA [facility] [id number] [facility] 2022-09-21 09:00:00 2022-09-21 09:11:44 Routine Visit Provider, Sara Montgomery [facility] KNIFE FINISHER [facility] 1.0.114 350.1.13.10 4.2.7.2.686 [id number] [facility] 2022-09-17 00:00:00 2022-09-17 00:00:00 Sara Flores [facility] KNIFE FINISHER [facility] CH[facility] 1.0.114 350.1.13.10 4.2.7.2.686 [id number] [facility] 2022-09-16 08:00:00 2022-09-16 09:09:08 Outpatient SARA ESTRADA [facility] [id number] [facility] 2022-09-16 08:00:00 2022-09-16 09:09:08 Routine Visit Provider, Sara Montgomery [facility] KNIFE FINISHER [facility] 1.840.114 350.1.13.10 4.2.7.2.686 [id number] [facility] 2022-09-14 11:00:00 2022-09-14 11:17:23 Outpatient SARA ESTRADA [facility] [id number] [facility] 2022-09-14 11:00:00 2022-09-14 11:17:23 Routine Visit Provider, Sara Montgomery [facility] KNIFE FINISHER [facility] 1..840.114 350.1.13.10 4.2.7.2.686 [id number] [facility] 2022-09-09 15:45:00 2022-09-09 16:06:21 Outpatient SARA ESTRADA [facility] [id number] [facility] 2022-09-09 15:45:00 2022-09-09 16:06:21 Routine Visit Provider, Sara Montgomery [facility] KNIFE FINISHER [facility] 1..840.114 350.1.13.10 4.2.7.2.686 [id number] [facility] 2022-09-07 15:00:00 2022-09-07 15:00:00 Outpatient R MARY ALMARAZ [facility] [id number] [facility] 2022-09-02 14:45:00 2022-09-02 15:29:07 Routine Visit Mary Almaraz [facility] KNIFE FINISHER [facility] CHILD [facility] ..840.114 350.1.13.10 4.2.7.2.686 [id number] 107 [id number] [facility] 2022-09-02 08:00:00 2022-09-02 08:45:00 Tool Drawing Checker Visit Ultrasound, Judit Turner [facility] KNIFE FINISHER [facility] MATERNAL & FOR[facility]LY [facility] 1.2.840.114 350.1.13.10 4.2.7.2.686 [id number] [facility] 2022-09-02 08:00:00 2022-09-02 08:43:49 Outpatient P GEETA ALONSOAz [facility] [id number] [facility] 2022-08-31 14:30:00 2022-08-31 15:09:06 Outpatient R MARY ALMARAZ [facility] [id number] [facility] 2022-08-31 14:30:00 2022-08-31 15:09:06 Routine Visit Mary Almaraz [facility] KNIFE [facility] MATERNAL & CHILD [facility]ALTH [facility] 1.840.114 350.1.13.10 4.2.7.2.686 [id number] [facility] 2022-08-26 15:15:00 2022-08-26 16:10:35 Outpatient R ROSETTA GORDILLO [facility] [id number] [facility] 2022-08-26 15:15:00 2022-08-26 16:10:35 Routine Visit Risk, Ang-Rmchp-N p/High Rosetta Gordillo [facility] MATERNAL & CHILD HE[facility] 1.840.114 350.1.13.10 4.2.7.2.686 [id number] [facility] 2022-08-24 15:45:00 2022-08-24 16:00:00 Routine Visit Mary Almaraz [facility] KNIFE FIN[facility] MATERNAL & CHILD [facility] 1.2840.114 350.1.13.10 4.2.7.2.686 [id number] 107 [id number] [facility] 2022-08-24 15:45:00 2022-08-24 15:45:00 Outpatient R MARY ALMARAZ [facility] [id number] [facility] 2022-08-20 15:30:00 2022-08-20 15:30:00 Outpatient R [facility] [id number] [facility] 2022-08-19 14:30:00 2022-08-19 14:45:00 Routine Visit Risk, Vic-Rmchp-N p/High Mariela Ortega [facility] KN[facility] MATERNAL & CHILD HE[facility] 1.2.840.114 350.1.13.10 4.2.7.2.686 [id number] [facility] 2022-08-19 14:15:00 2022-08-19 14:15:00 Outpatient R MARIELA ORTEGA [facility] [id number] [facility] 2022-08-16 14:30:00 2022-08-16 15:19:25 Outpatient R MARY ALMARAZ [facility] [id number] [facility] 2022-08-16 14:30:00 2022-08-16 15:19:25 Routine Visit Mary Almaraz [facility] KN[facility] MATERNAL & CHILD HEALTH [facility] 1.2.840.114 350.1.13.10 4.2.7.2.686 [id number] [facility] 2022-08-05 13:15:00 2022-08-05 13:45:00 Telemedici ne Visit Fellow, [facility] Armando Culver [facility] KNIFE [facility] MATERNAL & CHILD HEALTH [facility] 1.2.840.114 350.1.13.10 4.2.7.2.686 [id number] [facility] 2022-08-05 13:15:00 2022-08-05 13:15:00 Outpatient R ARMANDO CULVER [facility] [id number] [facility] 2022-08-05 08:30:00 2022-08-05 08:30:00 Outpatient P [facility] [id number] [facility] 2022-08-04 00:00:00 2022-08-04 00:00:00 Abstract Mary Almaraz [facility] KNIFE [facility] MATERNAL & CHILD [facility] 1..114 350.1.13.10 4.2.7.2.686 [id number] [facility] 2022-08-03 11:00:00 2022-08-03 11:37:54 Tool Drawing Checker Visit Ultrasound, Adc [facility] Armando Culver [facility] 1.114 350.1.13.10 4.2.7.2.686 [id number] [facility] 2022-08-03 11:00:00 2022-08-03 11:00:00 Outpatient P ARMANDO CULVER [facility] [id number] [facility] 2022-08-02 14:45:00 2022-08-02 15:08:08 Outpatient R MARY ALMARAZ [facility] [id number] [facility] 2022-08-02 14:45:00 2022-08-02 15:08:08 Routine Visit Mary Almaraz [facility] KNIFE FIN[facility]ER [facility] MATERNAL & CHILD [facility] .114 350.1.13.10 4.2.7.2.686 [id number] 107 [id number] [facility] 2022-08-02 00:00:00 2022-08-02 00:00:00 Patient Secure Msg Doctor Unassigned, [place] [facility] .114 350.1.13.10 4.2.7.2.686 [id number] [facility] 2022-08-02 00:00:00 2022-08-02 00:00:00 Orders Only Doctor Unassigned, [place] [facility] 1..114 350.1.13.10 4.2.7.2.686 [id number] [facility] 2022-07-30 09:45:00 2022-07-30 10:20:48 Outpatient R LYLE CARBAJAL [facility] [id number] Darakelsey quintero [facility] 2022-07-30 09:45:00 2022-07-30 10:20:48 Telemedici ne Visit Paloma Lucio Joseph W [facility] KNIFE [facility] MATERNAL & CHILD [facility] 1..114 350.1.13.10 4.2.7.2.686 [id number] [facility] 2022-07-29 08:00:00 2022-07-29 09:20:12 Outpatient R SARA THOMPSON [facility] [id number] [facility] 2022-07-29 08:00:00 2022-07-29 09:20:12 Routine Visit Provider, Sara Montgomery [facility] KNIFE FINISHER [facility] 1..114 350.1.13.10 4.2.7.2.686 [id number] 107 [id number] [facility] 2022-07-28 00:00:00 2022-07-28 00:00:00 Case Management Sara Thompson [facility] & CHILD [facility] 1..114 350.1.13.10 4.2.7.2.686 [id number] 107 [id number] [facility] 2022-07-27 14:45:00 2022-07-27 15:15:00 Tool Drawing Checker Visit Ultrasound, Armando Rebolledo [facility] KNIFE FIN[facility]ER [facility] MATERNAL & CHILD [facility] 1.2840.114 350.1.13.10 4.2.7.2.686 [id number] [facility] 2022-07-27 14:45:00 2022-07-27 14:45:00 Outpatient P ARMANDO CULVER [facility] [id number] [facility] 2022-07-27 00:00:00 2022-07-27 00:00:00 Case Management Sara Thompson [facility] KNIFE FINISHER [facility]ILD [facility] 1.2.840.114 350.1.13.10 4.2.7.2.686 [id number] 107 [id number] [facility] 2022-07-21 14:45:00 2022-07-21 15:15:00 Tool Drawing Checker Visit Ultrasound, Odalis Mitchell Juan [facility] KNIFE FINISHER [facility] & [facility]ILD [facility] 1.2.840.114 350.1.13.10 4.2.7.2.686 [id number] [facility] 2022-07-21 14:45:00 2022-07-21 14:45:00 Outpatient P THEODORE JUAN [facility] [id number] [facility] 2022-07-16 00:00:00 2022-07-16 00:00:00 Case Management Sara Thompson [facility] KNIFE FINISHER [facility] 1..840.114 350.1.13.10 4.2.7.2.686 [id number] 107 [id number] [facility] 2022-07-16 00:00:00 2022-07-16 00:00:00 Abstract Mary Almaraz [facility] KNIFE FINISHER [facility] CHILD [facility] 1..840.114 350.1.13.10 4.2.7.2.686 [id number] 107 [id number] [facility] 2022-07-15 10:00:00 2022-07-15 11:04:23 Outpatient P THEODORE JUAN [facility] [id number] [facility] 2022-07-15 10:00:00 2022-07-15 11:04:23 Tool Drawing Checker Visit Ultrasound, Sara Gray Corey [facility] KNIFE FIN[facility]ER [facility] MATERNAL & CHILD [facility] 1.2840.114 350.1.13.10 4.2.7.2.686 [id number] [facility] 2022-07-15 07:45:00 2022-07-15 08:33:56 Routine Visit Provider, Sara Montgomery [facility] KNIFE FINISHER [facility] 1.840.114 350.1.13.10 4.2.7.2.686 [id number] [facility] 2022-07-06 08:30:00 2022-07-06 08:30:00 Outpatient R MARY ALMARAZ [facility] [id number] [facility] 2022-06-25 08:00:00 2022-06-25 08:45:24 Outpatient R MARY ALMARAZ [facility] [id number] [facility] 2022-06-25 08:00:00 2022-06-25 08:45:24 Routine Visit Mary Almaraz [facility] KNIFE FINISHER [facility] 1.840.114 350.1.13.10 4.2.7.2.686 [id number] 107 [id number] [facility] 2022-06-02 00:00:00 2022-06-02 00:00:00 Abstract Mary Almaraz [facility] KNIFE FINISHER [facility] 1.2840.114 350.1.13.10 4.2.7.2.686 [id number] 107 [id number] [facility] 2022-05-28 09:30:00 2022-05-28 10:45:00 Tool Drawing Checker Visit Ultrasound, Mary Flynn Antonio F [facility] KNIFE FINISHER [facility] 1.2.840.114 350.1.13.10 4.2.7.2.686 [id number] [facility] 2022-05-28 09:30:00 2022-05-28 09:30:00 Outpatient Rafi CHIKA STEEN [facility] [id number] [facility] 2022-05-28 08:00:00 2022-05-28 08:47:33 Routine Visit Mary Almaraz [facility] KNIFE FINISHER [facility] 1.2.840.114 350.1.13.10 4.2.7.2.686 [id number] [facility] 2022-05-10 08:45:00 2022-05-10 09:15:43 Outpatient GONSALO RODRIGES [facility] [id number] [facility] 2022-05-10 08:45:00 2022-05-10 09:15:43 Routine Visit Gonsalo Peraza [facility] KNIFE FINISHER [facility] CHILD [facility] 1.2.840.114 350.1.13.10 4.2.7.2.686 [id number] [facility] 2022-04-26 08:30:00 2022-04-26 08:45:00 Routine Visit Gonsalo Peraza [facility] KNIFE FINISHER [facility] 1.2.840.114 350.1.13.10 4.2.7.2.686 [id number] [facility] 2022-04-26 08:30:00 2022-04-26 08:30:00 Outpatient GONSALO RODRIGES [facility] [id number] [facility] 2022-04-13 00:00:00 2022-04-13 00:00:00 Abstract Mary Almaraz [facility] KNIFE FINISHER [facility] 1.2840.114 350.1.13.10 4.2.7.2.686 [id number] [facility] 2022-04-12 15:00:00 2022-04-12 15:15:00 Tool Drawing Checker Visit Lab, [facility]..114 350.1.13.10 4.2.7.2.686 [id number] [facility] 2022-04-12 14:15:00 2022-04-12 15:12:25 Tool Drawing Checker Visit 1, [facility] Howie Grady Shannon M [facility] 1..114 350.1.13.10 4.2.7.2.686 [id number] [facility] 2022-04-12 15:00:00 2022-04-12 15:00:00 Outpatient R HOWIE GRADY [facility] [id number] [facility] 2022-04-12 15:00:00 2022-04-12 15:00:00 Outpatient R HOWIE GRADY [facility] [id number] [facility] 2022-04-12 09:30:00 2022-04-12 10:00:00 Telemedici ne Visit Faculty, [facility] Howie Grady [facility] KNIFE FIN[facility]ER [facility] MATERNAL & CHILD HEALTH [facility] 1.840.114 350.1.13.10 4.2.7.2.686 [id number] [facility] 2022-03-29 09:45:00 2022-03-29 10:19:55 Outpatient R MARY ALMARAZ [facility] [id number] [facility] 2022-03-29 09:45:00 2022-03-29 10:19:55 Routine Visit Mary Almaraz [facility] KNIFE FINISHER [facility] MATERNAL & CHILD HEALTH [facility] 1.840.114 350.1.13.10 4.2.7.2.686 [id number] [facility] 2022-03-29 09:45:00 2022-03-29 09:45:00 Outpatient R MARY ALMARAZ [facility] [id number] [facility] 2022-03-24 00:00:00 2022-03-24 00:00:00 Telephone Mary Almaraz [facility] KNIFE FINISHER [facility] 1..114 350.1.13.10 4.2.7.2.686 [id number] 107 [id number] [facility] 2022-03-01 10:00:00 2022-03-01 14:16:03 Initial Visit Mary Almaraz [facility] KNIFE FINISHER [facility] 1..114 350.1.13.10 4.2.7.2.686 [id number] 107 [id number] [facility] 2022-03-01 09:30:00 2022-03-01 10:54:07 Outpatient MARY SCHAEFFER [facility] [id number] [facility] 2022-03-01 00:00:00 2022-03-01 00:00:00 Orders Only Doctor Unassigned, [place] [facility] 1..114 350.1.13.10 4.2.7.2.686 [id number] [facility] 2022-02-24 00:00:00 2022-02-24 00:00:00 Telephone Gonsalo Peraza [facility] KNIFE FINISHER [facility] 1..114 350.1.13.10 4.2.7.2.686 [id number] [facility] 2020-12-15 09:00:00 2020-12-15 09:00:00 Outpatient R GONSALO PERAZA [facility] [id number] [facility] 2020-02-20 10:09:00 2020-02-20 10:09:00 Outpatient FERGUSON_JO HN MEHOP [facility] [address] [facility] 2020-02-19 12:55:00 2020-02-19 12:55:00 Outpatient FERGUSON_JO HN MEHOP [facility] [address] [facility] 2020-02-13 03:05:00 2020-02-13 03:05:00 Outpatient FERGUSON_JO HN MEHOP [facility] [address] [facility] 2019-11-07 09:00:00 2019-11-07 09:00:00 Outpatient Tabitha MIRAMONTESEGONSALO [facility] [id number] [facility] Results Test Description Test Time Test Comments Results Result Co mments Source [facility] [id number] 15:03:00* Test Item Value Reference Range Interpretation Comme nts POCT PREG (test code = 1605) Negative On board controls acceptable with C Line (test code = 3574) Yes POCT PREG LOT # (test code = 3575) POCT PREG TEST DATE ( test code = 3576) Lab Interpretation (test cod e = 18609-4) Normal [facility] [id number] 19:23:00* Test Item Value Reference Range Interpretation Comme nts POCT PREG (test code = 1605) Negative On board controls acceptable with C Line (test code = 3574) Yes POCT PREG LOT # (test code = 3575) POCT PREG TEST DATE ( test code = 3576) Lab Interpretation (test cod e = 36697-6) Normal [facility] [id number] 19:23:00* Test Item Value Reference Range Interpretation Comme nts POCT PREG (test code = 1605) Negative On board controls acceptable with C Line (test code = 3574) Yes POCT PREG LOT # (test code = 3575) POCT PREG TEST DATE ( test code = 3576) Lab Interpretation (test cod e = 76475-4) Normal [facility] [id number] 19:23:00* Test Item Value Reference Range Interpretation Comme nts POCT PREG (test code = 1605) Negative On board controls acceptable with C Line (test code = 3574) Yes POCT PREG LOT # (test code = 3575) POCT PREG TEST DATE ( test code = 3576) Lab Interpretation (test cod e = 32635-9) Normal [facility] [id number] 02:36:42* Test Item Value Reference Range Interpretation Comme nts URIC ACID (test code = 5716277873) 3.8 mg/dL 2.9-6.0 Lab Interpretation (test cod e = 13295-0) [id number] 02:36:41* Test Item Value Reference Range Interpretation Comme [facility] CREATININE (test code = 8829988782) 0.75 mg/dL 0.50-1.04 eGFR (test code = 4011231088) 90.1 mL/min/1.73m2 JOHANNA (test code = JOHANNA) Association of Glomerular Filtration Rate (GFR) and Staging of Kidney Disease* + + +- +| GFR (mL/min/1.73 m2) ?| With Kidney Damage ?| ?Without Kidney Damage+ ------+ ----+ ------+| ?>90 ?| ?Stage one ?| ? Normal ?+ -+ + -+| ?60-89 ?| ?Stage two ?| ? Decreased GFR ? + + +- +| ?30-59 ?| ?Stage three ?| ? Stage three ? + + +- +| ?15-29 ?| ?Stage four ? | ? Stage four ?+ -+ + -+| ?<15 (or dialysis) ? ?| ?Stage five ? | ? Stage five ?+ -+ + -+ *Each stage assumes the associated GFR level has been in effect for at least three months. ?Stages 1 to 5, with or without kidney disease, indicate chronic kidney disease. Notes: Determination of stages one and two (with eGFR >59mL/min/1.73 m2) requires estimation of kidney damage for at least three months as defined by structural or functional abnormalities of the kidney, manifested by either:Pathological abnormalities or Markers of kidney damage (including abnormalities in the composition of the blood or urine or abnormalities in imaging tests). [facility] (ASPARTATE AMINO TRANSFER)2022-10-05 02:36:41* Test Item Value Reference Range Interpretation Comme nts AST(SGOT) (test code = 0411382672) 26 U/L 13-40 Lab Interpretation (test cod e = 62705-2) Normal [facility] CenterALANINE AMINO TRANSFERASE([id number] 02:36:41* Test Item Value Reference Range Interpretation Comme nts ALTv (test code = 1742-6) 17 U/L 5-35 Lab Interpretation (test cod e = 58458-1) Normal [facility] CenterLACTATE [id number] 02:36:00* Test Item Value Reference Range Interpretation Comme nts LDH (test code = 8232562647) 230 U/L 120-246 Lab Interpretation (test cod e = 53924-8) Normal [facility] CenterType and Screen - ONCE [id number] 02:30:44 * Test Item Value Reference Range Interpretation Comme nts ABO & RH (test code = 20) B POSITIVE Performed at [facility] Laboratory Services - [facility] Blood [address] Free: [phone] No. [id number] IAT (test code = 1185) Negative Performed at [facility] Laboratory Services [facility] Blood [address] Free: [phone] No. [id number] [facility] CenterCBC WITH [id number] 02:11:17* Test Item Value Reference Range Interpretation Comme nts WBC (test code = 6690-2) 6.31 See_Comment [Automated messa ge] The system which generated this result transmitted reference range: 4.30 - 11.10 10*3/?L. The reference range was not used to interpret this result as normal/abnormal. RBC (test code = 789-8) 3.62 See_Comment L [Automated messa ge] The system which generated this result transmitted reference range: 3.93 - 5.25 10*6/?L. The reference range was not used to interpret this result as normal/abnormal. HGB (test code = 718-7) 9.4 g/dL 11.6-15.0 L HCT (test code = 4544-3) 30.6 % 35.7-45.2 L MCV (test code = 787-2) 84.5 fL 80.6-95.5 MCH (test code = 785-6) 26.0 pg 25.9-32.8 MCHC (test code = 786-4) 30.7 g/dL 31.6-35.1 L RDW-SD (test code = 12609-5) 43.6 fL 39.0-49.9 RDW-CV (test code = 788-0) 14.2 % 12.0-15.5 PLT (test code = 777-3) 403 See_Comment H [Automated messa ge] The system which generated this result transmitted reference range: 166 - 358 10*3/?L. The reference range was not used to interpret this result as normal/abnormal. MPV (test code = 22326-6) 9.1 fL 9.5-12.9 L NRBC/100 WBC (test code = 4149770697) 0.0 See_Comment [Automated ListRunner ssage] The system which generated this result transmitted reference range: 0.0 - 10.0 /100 WBCs. The reference range was not used to interpret this result as normal/abnormal. NRBC x10^3 (test code = 7443666753) See_Comment [Automated messa ge] The system which generated this result transmitted reference range: 10*3/?L. The reference range was not used to interpret this result as normal/abnormal. GRAN MAT (NEUT) % (test code = 770-8) 61.3 % IMM GRAN % (test code = 9741781396) 0.20 % LYMPH % (test code = 736-9) 29.5 % MONO % (test code = 5905-5) 5.5 % EOS % (test code = 713-8) 3.0 % BASO % (test code = 706-2) 0.5 % GRAN MAT x10^3(ANC) (test code = 9888911655) 3.87 10*3/uL 1.88-7.09 IMM GRAN x10^3 (test code = 2301432067) 0.00-0.06 LYMPH x10^3 (test code = 731-0) 1.86 10*3/uL 1.32-3.29 MONO x10^3 (test code = 742-7) 0.35 10*3/uL 0.33-0.92 EOS x10^3 (test code = 711-2) 0.19 10*3/uL 0.03-0.39 BASO x10^3 (test code = 704-7) 0.03 10*3/uL 0.01-0.07 Lab Interpretation (test code = 15601-9) Abnormal General acute hospital with [id number] 10:28:52* Test Item Value Reference Range Interpretation Comme nts WBC (test code = 6690-2) 7.87 See_Comment [Automated messa ge] The system which generated this result transmitted reference range: 4.30 - 11.10 10*3/?L. The reference range was not used to interpret this result as normal/abnormal. RBC (test code = 789-8) 2.88 See_Comment L [Automated messa ge] The system which generated this result transmitted reference range: 3.93 - 5.25 10*6/?L. The reference range was not used to interpret this result as normal/abnormal. HGB (test code = 718-7) 7.5 g/dL 11.6-15.0 L HCT (test code = 4544-3) 23.9 % 35.7-45.2 L MCV (test code = 787-2) 83.0 fL 80.6-95.5 MCH (test code = 785-6) 26.0 pg 25.9-32.8 MCHC (test code = 786-4) 31.4 g/dL 31.6-35.1 L RDW-SD (test code = 31876-2) 42.4 fL 39.0-49.9 RDW-CV (test code = 788-0) 14.1 % 12.0-15.5 PLT (test code = 777-3) 174 See_Comment [Automated messa ge] The system which generated this result transmitted reference range: 166 - 358 10*3/?L. The reference range was not used to interpret this result as normal/abnormal. MPV (test code = 12690-1) 10.0 fL 9.5-12.9 NRBC/100 WBC (test code = [id number]) 0.0 See_Comment [Automated [employer] ssage] The system which generated this result transmitted reference range: 0.0 - 10.0 /100 WBCs. The reference range was not used to interpret this result as normal/abnormal. NRBC x10^3 (test code = [id number]) See_Comment [Automated messa ge] The system which generated this result transmitted reference range: 10*3/?L. The reference range was not used to interpret this result as normal/abnormal. GRAN MAT (NEUT) % (test code = 770-8) 72.0 % IMM GRAN % (test code = 2111038970) 0.30 % LYMPH % (test code = 736-9) 19.9 % MONO % (test code = 5905-5) 6.4 % EOS % (test code = 713-8) 1.0 % BASO % (test code = 706-2) 0.4 % GRAN MAT x10^3(ANC) (test code = 7286791417) 5.67 10*3/uL 1.88-7.09 IMM GRAN x10^3 (test code = [id number]) 0.00-0.06 LYMPH x10^3 (test code = 731-0) 1.57 10*3/uL 1.32-3.29 MONO x10^3 (test code = 742-7) 0.50 10*3/uL 0.33-0.92 EOS x10^3 (test code = 711-2) 0.08 10*3/uL 0.03-0.39 BASO x10^3 (test code = 704-7) 0.03 10*3/uL 0.01-0.07 Lab Interpretation (test code = 92782-3) Abnormal [facility] with [id number] 10:28:52* Test Item Value Reference Range Interpretation Comme nts WBC (test code = 6690-2) 7.87 See_Comment [Automated messa ge] The system which generated this result transmitted reference range: 4.30 - 11.10 10*3/?L. The reference range was not used to interpret this result as normal/abnormal. RBC (test code = 789-8) 2.88 See_Comment L [Automated messa ge] The system which generated this result transmitted reference range: 3.93 - 5.25 10*6/?L. The reference range was not used to interpret this result as normal/abnormal. HGB (test code = 718-7) 7.5 g/dL 11.6-15.0 L HCT (test code = 4544-3) 23.9 % 35.7-45.2 L MCV (test code = 787-2) 83.0 fL 80.6-95.5 MCH (test code = 785-6) 26.0 pg 25.9-32.8 MCHC (test code = 786-4) 31.4 g/dL 31.6-35.1 L RDW-SD (test code = 66304-1) 42.4 fL 39.0-49.9 RDW-CV (test code = 788-0) 14.1 % 12.0-15.5 PLT (test code = 777-3) 174 See_Comment [Automated DonorSearcha ge] The system which generated this result transmitted reference range: 166 - 358 10*3/?L. The reference range was not used to interpret this result as normal/abnormal. MPV (test code = 50126-4) 10.0 fL 9.5-12.9 NRBC/100 WBC (test code = 9820815692) 0.0 See_Comment [Automated ListRunner ssage] The system which generated this result transmitted reference range: 0.0 - 10.0 /100 WBCs. The reference range was not used to interpret this result as normal/abnormal. NRBC x10^3 (test code = 8854862958) See_Comment [Automated DonorSearcha ge] The system which generated this result transmitted reference range: 10*3/?L. The reference range was not used to interpret this result as normal/abnormal. GRAN MAT (NEUT) % (test code = 770-8) 72.0 % IMM GRAN % (test code = 0757102526) 0.30 % LYMPH % (test code = 736-9) 19.9 % MONO % (test code = 5905-5) 6.4 % EOS % (test code = 713-8) 1.0 % BASO % (test code = 706-2) 0.4 % GRAN MAT x10^3(ANC) (test code = 5203509091) 5.67 10*3/uL 1.88-7.09 IMM GRAN x10^3 (test code = 8379815763) 0.00-0.06 LYMPH x10^3 (test code = 731-0) 1.57 10*3/uL 1.32-3.29 MONO x10^3 (test code = 742-7) 0.50 10*3/uL 0.33-0.92 EOS x10^3 (test code = 711-2) 0.08 10*3/uL 0.03-0.39 BASO x10^3 (test code = 704-7) 0.03 10*3/uL 0.01-0.07 Lab Interpretation (test code = 94610-2) Abnormal [facility] ONLY - SYPHILIS [id number] 15:52:33* Test Item Value Reference Range Interpretation Comme nts Syphilis IgG/IgM (test code = 60424-2) Non-reactive Non-reactive JOHANNA (test code = JOHANNA) Non-reactive - No serologic evidence of T. pallidum infection. Cannot exclude incubating or early syphilis. Submit a second specimen in 2-4 weeks if syphilis is clinically suspected. Equivocal - Further testing to follow. Reactive - Further testing to follow. Lab Interpretation (test code = 86862-8) Normal [facility] ONLY - SYPHILIS [id number] 15:52:33* Test Item Value Reference Range Interpretation Comme nts Syphilis IgG/IgM (test code = 29437-2) Non-reactive Non-reactive JOHANNA (test code = JOHANNA) Non-reactive - No serologic evidence of T. pallidum infection. Cannot exclude incubating or early syphilis. Submit a second specimen in 2-4 weeks if syphilis is clinically suspected. Equivocal - Further testing to follow. Reactive - Further testing to follow. Lab Interpretation (test code = 23382-4) Normal [facility]MMUN[facility] [id number] 08:31:56* Test Item Value Reference Range Interpretation Comme nts RHIG CANDIDATE? (test code = 5055) No- see comment Patient is not a candidate for RhIg- Patient is Rh Positive.Performed at [facility] Laboratory Services - [facility] Blood [address] [place] [address] Free: [phone] No. [id number] [facility]) IMMUNE [id number] 08:31:56* Test Item Value Reference Range Interpretation Comme nts RHIG CANDIDATE? (test code = 5055) No- see comment Patient is not a candidate for RhIg- Patient is Rh Positive.Performed at [facility] Laboratory Services - [facility] Blood [address] [place] [address] Free: [phone] No. [id number] [facility] [id number] 06:35:10* Test Item Value Reference Range Interpretation Comme nts BASE EXCESS, CORD (test code = 6382948682) -1.7 mEq/L QUES AC PH, CORD (BEAKER) (test code = 1037553622) 7.38 7.18-7.38 PC02, CORD (test code = 5956449278) 41 See_Comment [Automated messa ge] The system which generated this result transmitted reference range: 32 - 66 mmHg. The reference range was not used to interpret this result as normal/abnormal. PO2, CORD (test code = 7631762033) 35 See_Comment H [Automated messa ge] The system which generated this result transmitted reference range: 10 - 30 mmHg. The reference range was not used to interpret this result as normal/abnormal. BICARBONATE, CORD (test code = 7006736684) 23 See_Comment [Automated me ssage] The system which generated this result transmitted reference range: 17 - 27 mEq/L. The reference range was not used to interpret this result as normal/abnormal. Lab Interpretation (test code = 29866-0) Abnormal [facility] [id number] 06:35:10* Test Item Value Reference Range Interpretation Comme nts BASE EXCESS, CORD (test code = 4816265872) -1.7 mEq/L QUES AC PH, CORD (BEAKER) (test code = 5187718701) 7.38 7.18-7.38 PC02, CORD (test code = 2442117533) 41 See_Comment [Automated messa ge] The system which generated this result transmitted reference range: 32 - 66 mmHg. The reference range was not used to interpret this result as normal/abnormal. PO2, CORD (test code = 8013043049) 35 See_Comment H [Automated messa ge] The system which generated this result transmitted reference range: 10 - 30 mmHg. The reference range was not used to interpret this result as normal/abnormal. BICARBONATE, CORD (test code = 4157828302) 23 See_Comment [Automated me ssage] The system which generated this result transmitted reference range: 17 - 27 mEq/L. The reference range was not used to interpret this result as normal/abnormal. Lab Interpretation (test code = 63936-5) Abnormal [facility] CORD [id number] 06:34:59* Test Item Value Reference Range Interpretation Comme nts VENOUS BASE EXCESS, CORD (test code = 7096741775) -4.1 mEq/L VENOUS PH, CORD (test code = 9536281068) 7.37 7.25-7.45 VENOUS PC02, CORD (test code = 3062895060) 36 See_Comment [Automated messa ge] The system which generated this result transmitted reference range: 27 - 49 mmHg. The reference range was not used to interpret this result as normal/abnormal. VENOUS PO2, CORD (test code = 5741634789) 35 See_Comment [Automated me ssage] The system which generated this result transmitted reference range: 17 - 41 mmHg. The reference range was not used to interpret this result as normal/abnormal. VENOUS BICARBONATE, CORD (test code = 7133535937) 21 See_Comment QUES [Automated message] The system which generated this result transmitted reference range: 12 - 29 mEq/L. The reference range was not used to interpret this result as normal/abnormal. [facility] CORD [id number] 06:34:59* Test Item Value Reference Range Interpretation Comme nts VENOUS BASE EXCESS, CORD (test code = 1307440972) -4.1 mEq/L VENOUS PH, CORD (test code = 8742542487) 7.37 7.25-7.45 VENOUS PC02, CORD (test code = 7520671199) 36 See_Comment [Automated messa ge] The system which generated this result transmitted reference range: 27 - 49 mmHg. The reference range was not used to interpret this result as normal/abnormal. VENOUS PO2, CORD (test code = 6066393668) 35 See_Comment [Automated me ssage] The system which generated this result transmitted reference range: 17 - 41 mmHg. The reference range was not used to interpret this result as normal/abnormal. VENOUS BICARBONATE, CORD (test code = 0798886410) 21 See_Comment QUES [Automated message] The system which generated this result transmitted reference range: 12 - 29 mEq/L. The reference range was not used to interpret this result as normal/abnormal. [facility] 1/2 AG-AB WITH [id number] 18:17:29* Test Item Value Reference Range Interpretation Comme nts HIV Semi-quantitative (test code = 31920-4) 0.08 Negative JOHANNA (test code = JOHANNA) Non-reactive for HIV-1 antigen and HIV-1/HIV-2 antibodies. ?No laboratory evidence of HIV infection. ?Repeat in 2-4 weeks if acute HIV infection is suspected. [facility] 1/2 AG-AB WITH [id number] 18:17:29* Test Item Value Reference Range Interpretation Comme nts HIV Semi-quantitative (test code = 75256-6) 0.08 Negative JOHANNA (test code = JOHANNA) Non-reactive for HIV-1 antigen and HIV-1/HIV-2 antibodies. ?No laboratory evidence of HIV infection. ?Repeat in 2-4 weeks if acute HIV infection is suspected. [facility] CenterHep[facility] B Surface [id number] 16:17:34 * Test Item Value Reference Range Interpretation Comme nts HBsAg Semi-Quantitative (alesha t code = 5195-3) 0.[address] [facility] B Surface Qjskluz7891-06-77 16:17:34 * Test Item Value Reference Range Interpretation Comme nts HBsAg Semi-Quantitative (alesha t code = 5195-3) 0.[address] [facility] CenterType and Screen - ONCE [id number] 15:40:20 * Test Item Value Reference Range Interpretation Comme nts ABO & RH (test code = 20) B POSITIVE Performed at [facility] Laboratory Services - [facility] Blood [address] Free: [phone] No. [id number] IAT (test code = 1185) Negative Performed at [facility] Laboratory Services - [address] Free: [phone] No. [id number] [facility] CenterType [facility] Screen - ONCE [id number] 15:40:20 * Test Item Value Reference Range Interpretation Comme nts ABO & RH (test code = 20) B POSITIVE Performed at [facility] Laboratory Services - [address] Free: [phone] No. [id number] IAT (test code = 1185) Negative Performed at [facility] Laboratory Services - [address] Free: [phone] No. [id number] [facility] CenterCBC with [id number] 15:05:23* Test Item Value Reference Range Interpretation Comme nts WBC (test code = 6690-2) 5.77 See_Comment [Automated messa ge] The system which generated this result transmitted reference range: 4.30 - 11.10 10*3/?L. The reference range was not used to interpret this result as normal/abnormal. RBC (test code = 789-8) 3.23 See_Comment L [Automated messa ge] The system which generated this result transmitted reference range: 3.93 - 5.25 10*6/?L. The reference range was not used to interpret this result as normal/abnormal. HGB (test code = 718-7) 8.5 g/dL 11.6-15.0 L HCT (test code = 4544-3) 26.6 % 35.7-45.2 L MCV (test code = 787-2) 82.4 fL 80.6-95.5 MCH (test code = 785-6) 26.3 pg 25.9-32.8 MCHC (test code = 786-4) 32.0 g/dL 31.6-35.1 RDW-SD (test code = 57233-6) 41.6 fL 39.0-49.9 RDW-CV (test code = 788-0) 14.0 % 12.0-15.5 PLT (test code = 777-3) 198 See_Comment [Automated messa ge] The system which generated this result transmitted reference range: 166 - 358 10*3/?L. The reference range was not used to interpret this result as normal/abnormal. MPV (test code = 85401-3) 9.6 fL 9.5-12.9 NRBC/100 WBC (test code = 7122911499) 0.0 See_Comment [Automated ListRunner ssage] The system which generated this result transmitted reference range: 0.0 - 10.0 /100 WBCs. The reference range was not used to interpret this result as normal/abnormal. NRBC x10^3 (test code = 8081225225) See_Comment [Automated DonorSearcha ge] The system which generated this result transmitted reference range: 10*3/?L. The reference range was not used to interpret this result as normal/abnormal. GRAN MAT (NEUT) % (test code = 770-8) 74.6 % IMM GRAN % (test code = 6753514678) 0.30 % LYMPH % (test code = 736-9) 19.4 % MONO % (test code = 5905-5) 4.2 % EOS % (test code = 713-8) 1.2 % BASO % (test code = 706-2) 0.3 % GRAN MAT x10^3(ANC) (test code = 6856231260) 4.30 10*3/uL 1.88-7.09 IMM GRAN x10^3 (test code = 2585733339) 0.00-0.06 LYMPH x10^3 (test code = 731-0) 1.12 10*3/uL 1.32-3.29 L MONO x10^3 (test code = 742-7) 0.24 10*3/uL 0.33-0.92 L EOS x10^3 (test code = 711-2) 0.07 10*3/uL 0.03-0.39 BASO x10^3 (test code = 704-7) 0.01-0.07 Lab Interpretation (test code = 47965-0) Abnormal General acute hospital with Iwicgkqndyuw1400-73-81 15:05:23* Test Item Value Reference Range Interpretation Comme nts WBC (test code = 6690-2) 5.77 See_Comment [Automated messa ge] The system which generated this result transmitted reference range: 4.30 - 11.10 10*3/?L. The reference range was not used to interpret this result as normal/abnormal. RBC (test code = 789-8) 3.23 See_Comment L [Automated messa ge] The system which generated this result transmitted reference range: 3.93 - 5.25 10*6/?L. The reference range was not used to interpret this result as normal/abnormal. HGB (test code = 718-7) 8.5 g/dL 11.6-15.0 L HCT (test code = 4544-3) 26.6 % 35.7-45.2 L MCV (test code = 787-2) 82.4 fL 80.6-95.5 MCH (test code = 785-6) 26.3 pg 25.9-32.8 MCHC (test code = 786-4) 32.0 g/dL 31.6-35.1 RDW-SD (test code = 84360-2) 41.6 fL 39.0-49.9 RDW-CV (test code = 788-0) 14.0 % 12.0-15.5 PLT (test code = 777-3) 198 See_Comment [Automated messa ge] The system which generated this result transmitted reference range: 166 - 358 10*3/?L. The reference range was not used to interpret this result as normal/abnormal. MPV (test code = 72542-9) 9.6 fL 9.5-12.9 NRBC/100 WBC (test code = 9123740320) 0.0 See_Comment [Automated me ssage] The system which generated this result transmitted reference range: 0.0 - 10.0 /100 WBCs. The reference range was not used to interpret this result as normal/abnormal. NRBC x10^3 (test code = 8118683039) See_Comment [Automated messa ge] The system which generated this result transmitted reference range: 10*3/?L. The reference range was not used to interpret this result as normal/abnormal. GRAN MAT (NEUT) % (test code = 770-8) 74.6 % IMM GRAN % (test code = 3645833586) 0.30 % LYMPH % (test code = 736-9) 19.4 % MONO % (test code = 5905-5) 4.2 % EOS % (test code = 713-8) 1.2 % BASO % (test code = 706-2) 0.3 % GRAN MAT x10^3(ANC) (test code = 5509117621) 4.30 10*3/uL 1.88-7.09 IMM GRAN x10^3 (test code = 0806989720) 0.00-0.06 LYMPH x10^3 (test code = 731-0) 1.12 10*3/uL 1.32-3.29 L MONO x10^3 (test code = 742-7) 0.24 10*3/uL 0.33-0.92 L EOS x10^3 (test code = 711-2) 0.07 10*3/uL 0.03-0.39 BASO x10^3 (test code = 704-7) 0.01-0.07 Lab Interpretation (test code = 01803-4) Abnormal [facility] URINALYSIS W SPECIFIC [id number] 14:43:00* Test Item Value Reference Range Interpretation Comme nts POCT U SP GRAV (test code = 3255) . 1.005-1.025 POCT PH U (test code = 3254) 6 mg/dl 5-8 POCT U LEUK EST (test code = 3263) 2+ Negative - Negative POCT U NIT (test code = 3262) Pos Negative - Negati ve POCT U PROT (test code = 3259) 1+ Negative - Negat griffin POCT U GLU (test code = 3256) Neg Negative - Negati ve POCT U KETONE (test code = 3258) None Negative - Neg ative POCT U UROBILI (test code = 3260) . 0.2-1 POCT U BILI (test code = 3261) . Negative - Negat griffin POCT U BLD (test code = 3257) Trace Negative - Negati ve POCT U COLOR (test code = 3266) . POCT U APPEAR (test code = 3267) .. [facility] URINALYSIS W SPECIFIC [id number] 14:32:00* Test Item Value Reference Range Interpretation Comme nts POCT U SP GRAV (test code = 3255) . 1.005-1.025 POCT PH U (test code = 3254) . 5-8 POCT U LEUK EST (test code = 3263) . Negative - Negative POCT U NIT (test code = 3262) . Negative - Negati ve POCT U PROT (test code = 3259) trace Negative - Negat griffin POCT U GLU (test code = 3256) negative Negative - Negati ve POCT U KETONE (test code = 3258) . Negative - Neg ative POCT U UROBILI (test code = 3260) . 0.2-1 POCT U BILI (test code = 3261) . Negative - Negat griffin POCT U BLD (test code = 3257) . Negative - Negati ve POCT U COLOR (test code = 3266) . POCT U APPEAR (test code = 3267) . [facility] URINALYSIS W SPECIFIC [id number] 16:37:00* Test Item Value Reference Range Interpretation Comme nts POCT U SP GRAV (test code = 3255) . 1.005-1.025 POCT PH U (test code = 3254) . 5-8 POCT U LEUK EST (test code = 3263) . Negative - Negative POCT U NIT (test code = 3262) . Negative - Negati ve POCT U PROT (test code = 3259) trace Negative - Negat griffin POCT U GLU (test code = 3256) negative Negative - Negati ve POCT U KETONE (test code = 3258) . Negative - Neg ative POCT U UROBILI (test code = 3260) . 0.2-1 POCT U BILI (test code = 3261) . Negative - Negat griffin POCT U BLD (test code = 3257) . Negative - Negati ve POCT U COLOR (test code = 3266) . POCT U APPEAR (test code = 3267) . [facility] URINALYSIS W SPECIFIC [id number] 21:35:00* Test Item Value Reference Range Interpretation Comme nts POCT U SP GRAV (test code = 3255) . 1.005-1.025 POCT PH U (test code = 3254) . 5-8 POCT U LEUK EST (test code = 3263) . Negative - Negative POCT U NIT (test code = 3262) . Negative - Negati ve POCT U PROT (test code = 3259) 1+ Negative - Negat griffin POCT U GLU (test code = 3256) negative Negative - Negati ve POCT U KETONE (test code = 3258) . Negative - Neg ative POCT U UROBILI (test code = 3260) . 0.2-1 POCT U BILI (test code = 3261) . Negative - Negat griffin POCT U BLD (test code = 3257) . Negative - Negati ve POCT U COLOR (test code = 3266) . POCT U APPEAR (test code = 3267) . [facility] URINALYSIS W SPECIFIC [id number] 20:27:00* Test Item Value Reference Range Interpretation Comme nts POCT U SP GRAV (test code = 3255) . 1.005-1.025 POCT PH U (test code = 3254) 6 mg/dl 5-8 POCT U LEUK EST (test code = 3263) 2+ Negative - Negative POCT U NIT (test code = 3262) Neg Negative - Negati ve POCT U PROT (test code = 3259) Trace Negative - Negat griffin POCT U GLU (test code = 3256) Neg Negative - Negati ve POCT U KETONE (test code = 3258) None Negative - Neg ative POCT U UROBILI (test code = 3260) . 0.2-1 POCT U BILI (test code = 3261) . Negative - Negat griffin POCT U BLD (test code = 3257) Trace Negative - Negati ve POCT U COLOR (test code = 3266) . POCT U APPEAR (test code = 3267) [facility] URINALYSIS W SPECIFIC [id number] 20:27:00* Test Item Value Reference Range Interpretation Comme nts POCT U SP GRAV (test code = 3255) . 1.005-1.025 POCT PH U (test code = 3254) . 5-8 POCT U LEUK EST (test code = 3263) . Negative - N egative POCT U NIT (test code = 3262) . Negative - Negati ve POCT U PROT (test code = 3259) 1+ Negative - Negat griffin POCT U GLU (test code = 3256) Neg Negative - Negati ve POCT U KETONE (test code = 3258) . Negative - Neg ative POCT U UROBILI (test code = 3260) . 0.2-1 POCT U BILI (test code = 3261) . Negative - Negat griffin POCT U BLD (test code = 3257) . Negative - Negati ve POCT U COLOR (test code = 3266) POCT U APPEAR (test code = 3267) [facility] URINALYSIS W SPECIFIC [id number] 21:39:00* Test Item Value Reference Range Interpretation Comme nts POCT U SP GRAV (test code = 3255) . 1.005-1.025 POCT PH U (test code = 3254) 5 mg/dl 5-8 POCT U LEUK EST (test code = 3263) small Negative - Negative POCT U NIT (test code = 3262) . Negative - Negati ve POCT U PROT (test code = 3259) trace Negative - Negat griffin POCT U GLU (test code = 3256) neg Negative - Negati ve POCT U KETONE (test code = 3258) small Negative - Neg ative POCT U UROBILI (test code = 3260) . 0.2-1 POCT U BILI (test code = 3261) . Negative - Negat griffin POCT U BLD (test code = 3257) . Negative - Negati ve POCT U COLOR (test code = 3266) . POCT U APPEAR (test code = 3267) . [facility] URINALYSIS W SPECIFIC [id number] 21:34:00* Test Item Value Reference Range Interpretation Comme nts POCT U SP GRAV (test code = 3255) . 1.005-1.025 POCT PH U (test code = 3254) . 5-8 POCT U LEUK EST (test code = 3263) . Negative - Negative POCT U NIT (test code = 3262) . Negative - Negati ve POCT U PROT (test code = 3259) 1+ Negative - Negat griffin POCT U GLU (test code = 3256) negative Negative - Negati ve POCT U KETONE (test code = 3258) . Negative - Neg ative POCT U UROBILI (test code = 3260) . 0.2-1 POCT U BILI (test code = 3261) . Negative - Negat griffin POCT U BLD (test code = 3257) . Negative - Negati ve POCT U COLOR (test code = 3266) . POCT U APPEAR (test code = 3267) . [facility] URINALYSIS W SPECIFIC [id number] 20:34:00* Test Item Value Reference Range Interpretation Comme nts POCT U SP GRAV (test code = 3255) . 1.005-1.025 POCT PH U (test code = 3254) 6 mg/dl 5-8 POCT U LEUK EST (test code = 3263) . Negative - Negative POCT U NIT (test code = 3262) . Negative - Negati ve POCT U PROT (test code = 3259) . Negative - Negat griffin POCT U GLU (test code = 3256) . Negative - Negati ve POCT U KETONE (test code = 3258) . Negative - Neg ative POCT U UROBILI (test code = 3260) . 0.2-1 POCT U BILI (test code = 3261) . Negative - Negat griffin POCT U BLD (test code = 3257) . Negative - Negati ve POCT U COLOR (test code = 3266) . POCT U APPEAR (test code = 3267) . [facility] URINALYSIS W SPECIFIC [id number] 20:37:00* Test Item Value Reference Range Interpretation Comme nts POCT U SP GRAV (test code = 3255) . 1.005-1.025 POCT PH U (test code = 3254) . 5-8 POCT U LEUK EST (test code = 3263) . Negative - N egative POCT U NIT (test code = 3262) . Negative - Negati ve POCT U PROT (test code = 3259) Trace Negative - Negat griffin POCT U GLU (test code = 3256) Neg Negative - Negati ve POCT U KETONE (test code = 3258) . Negative - Neg ative POCT U UROBILI (test code = 3260) . 0.2-1 POCT U BILI (test code = 3261) . Negative - Negat griffin POCT U BLD (test code = 3257) . Negative - Negati ve POCT U COLOR (test code = 3266) POCT U APPEAR (test code = 3267) [facility] URINALYSIS W SPECIFIC [id number] 20:35:00* Test Item Value Reference Range Interpretation Comme nts POCT U SP GRAV (test code = 3255) . 1.005-1.025 POCT PH U (test code = 3254) . 5-8 POCT U LEUK EST (test code = 3263) . Negative - N egative POCT U NIT (test code = 3262) . Negative - Negati ve POCT U PROT (test code = 3259) 1+ Negative - Negat griffin POCT U GLU (test code = 3256) Neg Negative - Negati ve POCT U KETONE (test code = 3258) . Negative - Neg ative POCT U UROBILI (test code = 3260) . 0.2-1 POCT U BILI (test code = 3261) . Negative - Negat griffin POCT U BLD (test code = 3257) . Negative - Negati ve POCT U COLOR (test code = 3266) POCT U APPEAR (test code = 3267) [facility] URINALYSIS W SPECIFIC [id number] 14:01:00* Test Item Value Reference Range Interpretation Comme nts POCT U SP GRAV (test code = 3255) . 1.005-1.025 POCT PH U (test code = 3254) . 5-8 POCT U LEUK EST (test code = 3263) . Negative - N egative POCT U NIT (test code = 3262) . Negative - Negati ve POCT U PROT (test code = 3259) Trace Negative - Negat griffin POCT U GLU (test code = 3256) Neg Negative - Negati ve POCT U KETONE (test code = 3258) . Negative - Neg ative POCT U UROBILI (test code = 3260) . 0.2-1 POCT U BILI (test code = 3261) . Negative - Negat griffin POCT U BLD (test code = 3257) . Negative - Negati ve POCT U COLOR (test code = 3266) . POCT U APPEAR (test code = 3267) [facility] URINALYSIS W SPECIFIC [id number] 14:34:00* Test Item Value Reference Range Interpretation Comme nts POCT U SP GRAV (test code = 3255) . 1.005-1.025 POCT PH U (test code = 3254) 6 mg/dl 5-8 POCT U LEUK EST (test code = 3263) 1+ Negative - Negative POCT U NIT (test code = 3262) Neg Negative - Negati ve POCT U PROT (test code = 3259) Trace Negative - Negat griffin POCT U GLU (test code = 3256) Neg Negative - Negati ve POCT U KETONE (test code = 3258) None Negative - Neg ative POCT U UROBILI (test code = 3260) . 0.2-1 POCT U BILI (test code = 3261) . Negative - Negat griffin POCT U BLD (test code = 3257) Trace Negative - Negati ve POCT U COLOR (test code = 3266) POCT U APPEAR (test code = 3267) [facility] URINALYSIS W SPECIFIC [id number] 14:26:00* Test Item Value Reference Range Interpretation Comme nts POCT U SP GRAV (test code = 3255) . 1.005-1.025 POCT PH U (test code = 3254) . 5-8 POCT U LEUK EST (test code = 3263) . Negative - N egative POCT U NIT (test code = 3262) . Negative - Negati ve POCT U PROT (test code = 3259) Trace Negative - Negat griffin POCT U GLU (test code = 3256) Neg Negative - Negati ve POCT U KETONE (test code = 3258) . Negative - Neg ative POCT U UROBILI (test code = 3260) . 0.2-1 POCT U BILI (test code = 3261) . Negative - Negat griffin POCT U BLD (test code = 3257) . Negative - Negati ve POCT U COLOR (test code = 3266) . POCT U APPEAR (test code = 3267) .. [facility] URINALYSIS W SPECIFIC [id number] 13:30:00* Test Item Value Reference Range Interpretation Comme nts POCT U SP GRAV (test code = 3255) * 1.005-1.025 POCT PH U (test code = 3254) * 5-8 POCT U LEUK EST (test code = 3263) * Negative - Negative POCT U NIT (test code = 3262) * Negative - Negati ve POCT U PROT (test code = 3259) trace Negative - Negat griffin POCT U GLU (test code = 3256) negative Negative - Negati ve POCT U KETONE (test code = 3258) * Negative - Neg ative POCT U UROBILI (test code = 3260) * 0.2-1 POCT U BILI (test code = 3261) * Negative - Negat griffin POCT U BLD (test code = 3257) * Negative - Negati ve POCT U COLOR (test code = 3266) * POCT U APPEAR (test code = 3267) * [facility] URINALYSIS W SPECIFIC [id number] 13:53:00* Test Item Value Reference Range Interpretation Comme nts POCT U SP GRAV (test code = 3255) * 1.005-1.025 POCT PH U (test code = 3254) * 5-8 POCT U LEUK EST (test code = 3263) * Negative - Negative POCT U NIT (test code = 3262) * Negative - Negati ve POCT U PROT (test code = 3259) trace Negative - Negat griffin POCT U GLU (test code = 3256) negative Negative - Negati ve POCT U KETONE (test code = 3258) * Negative - Neg ative POCT U UROBILI (test code = 3260) * 0.2-1 POCT U BILI (test code = 3261) * Negative - Negat griffin POCT U BLD (test code = 3257) * Negative - Negati ve POCT U COLOR (test code = 3266) [facility] APPEAR (test code = 3267) [facility] [id number] 13:52:00* Test Item Value Reference Range Interpretation Comme nts POCT U SP GRAV (test code = 3255) * 1.005-1.025 POCT PH U (test code = 3254) * 5-8 POCT U LEUK EST (test code = 3263) * Negative - Negative POCT U NIT (test code = 3262) * Negative - Negati ve POCT U PROT (test code = 3259) 1+ Negative - Negat griffin POCT U GLU (test code = 3256) negative Negative - Negati ve POCT U KETONE (test code = 3258) * Negative - Neg ative POCT U UROBILI (test code = 3260) * 0.2-1 POCT U BILI (test code = 3261) * Negative - Negat griffin POCT U BLD (test code = 3257) * Negative - Negati ve POCT U COLOR (test code = 3266) POCT U APPEAR (test code = 3267) [facility]"
[2024-05-24] MEDS ORDERED: LIDOCAINE 1% MPF 5 ML VIAL ONE (08:07)
[2024-05-24] MEDS ORDERED: TDAP (DIPHTH,PERTUSS(ACELL),TET VAC) 0.5 ML VIAL IMVAC ONE (09:27)
--- NOTE | 2024-05-24 09:50 | ER ---
Nurse's Notes [facility] Name: Braxton Hunt Age: 33 yrs Sex: Female : 1990 Arrival Date: 05/24/2024 Time: 07:41 Bed 14 Private MD: Diagnosis: Laceration without foreign body of left hand, initial encounter-index Presentation: 05/24 07:55 Chief complaint: Patient states: cut her left index finger with scissors this morning. iw Coronavirus screen: At this time, the client does not indicate any symptoms associated with coronavirus-19. Ebola Screen: No symptoms or risks identified at this time. Initial Sepsis Screen: Does the patient meet any 2 criteria? No. Patient's initial sepsis screen is negative. Does the patient have a suspected source of infection?. Risk Assessment: Do you want to hurt yourself or someone else? Patient reports no desire to harm self or others. Onset of symptoms was May 24, 2024. 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 - Infectious Disease History:: Denies. - Social history:: Smoking status: Patient denies any tobacco usage or history of. Screenin:30 [facility] ED Fall Risk Assessment (Adult) History of falling in the last 3 months, ko1 including since admission No falls in past 3 months (0 pts) Confusion or Disorientation No (0 pts) Intoxicated or Sedated No (0 pts) Impaired Gait No (0 pts) Mobility Assist Device Used No (0 pt) Altered Elimination No (0 pt) Score/Fall Risk Level 0 - 2 = Low Risk Oriented to surroundings, Maintained a safe environment, Educated pt \T\ family on fall prevention, incl call for assistance when getting out of bed, Hourly rounding (assess needs \T\ fall precautionary measures) done. Abuse screen: Denies threats or abuse. Denies injuries from another. Nutritional screening: No deficits noted. Tuberculosis screening: No symptoms or risk factors identified. Assessment: 08:30 General: Appears in no apparent distress. Behavior is calm, cooperative, appropriate ko1 for age. Pain: Complains of pain in palmar aspect of middle phalanx of left index finger. Neuro: No deficits noted. Cardiovascular: No deficits noted. Respiratory: No deficits noted. GI: No deficits noted. : No deficits noted. EENT: No deficits noted. Derm: No deficits noted. Musculoskeletal: Circulation, motion, and sensation intact. Injury Description: Laceration sustained to left index finger. Vital Signs: 07:55 BP 155 / 106; Pulse 71; Resp 16; Temp 97; Pulse Ox 100% on R/A; Weight 95.25 kg; Height iw 5 ft. 3 in. ; Pain 2/10; 08:30 BP 148 / 99; Pulse 75; Resp 15; Pulse Ox 98% ; ko1 09:45 BP 145 / 88; Pulse 72; Resp 14; Pulse Ox 99% ; ko1 07:55 Body Mass Index 37.20 (95.25 kg, 160.02 cm) iw 07:55 Pain Scale: Adult iw ED Course: 07:43 Patient arrived in ED. im 07:57 Triage completed. iw 07:59 Deb Ventura, RN is Primary Nurse. ko1 08:00 Juan Thomas MD is Attending Physician. [place] 08:30 Patient has correct armband on for positive identification. Bed in low position. Call ko1 light in reach. Side rails up X 1. Provided Education on: lac repair. Pulse ox on. NIBP on. Door closed. Noise minimized. Lights dimmed. Warm blanket given. Pillow given. 08:30 Patient placed in an exam room, on a stretcher, on pulse oximetry, Patient notified of ko1 wait time. 08:30 Patient did not have IV access during this emergency room visit. ko1 09:21 Assist provider with laceration repair on palmar aspect of middle phalanx of left index ko1 finger using sutures. Set up tray. Performed by Juan Thomas MD Dressed with 4X4s, Kerlix, Patient tolerated well. Administered Medications: 09:22 Drug: Lidocaine Infiltration (1 %) 5 ml 5 ml Infiltration once; to bedside {Note: given ko1 by Dr Thomas.} Volume: 5 ml; Route: Infiltration; 09:37 Follow up: Response: No adverse reaction ko1 09:29 Drug: Boostrix Tdap IM 0.5 ml IM once; as a single dose Route: IM; Site: left deltoid; ko1 09:44 Follow up: Response: (VIS) Vaccine information sheet provided today. Questions and/or ko1 concerns addressed. VIS edition date: Mar 20, 2021.; No adverse reaction Medication: 09:43 Vaccine Information Statement (VIS) provided today. Questions and/or concerns ko1 addressed. VIS edition date: 2016. Outcome: 09:45 Discharged to home ambulatory, ko1 09:45 Condition: stable 09:45 Discharge instructions given to patient, Instructed on discharge instructions, follow up and referral plans. medication usage, wound care, Demonstrated understanding of instructions, follow-up care, medications, wound care, Prescriptions given X 1, 09:50 Discharge ordered by MD. tran 09:58 Patient left the ED. ko1 Signatures: Juan Thomas MD MD cha Williams, Irene, RN Deb Rain RN RN ko1 Gayatri Owen im
--- NOTE | 2024-05-24 09:51 | EDPHYS ---
Physician Documentation [facility] Name: Braxton Hunt Age: 33 yrs Sex: Female : 1990 Arrival Date: 05/24/2024 Time: 07:41 Bed 14 Private MD: ED Physician Juan Thomas HPI: 05/24 09:41 This 33 yrs old Black Female presents to ER via Ambulatory with complaints of Finger chelsea Injury - Left index finger. 09:41 Trauma demographics: County: The injury occurred in [place]. 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 - Infectious Disease History:: Denies. - Social history:: Smoking status: Patient denies any tobacco usage or history of. ROS: 09:41 Constitutional: Negative for fever, chills, and weight loss, Eyes: Negative for injury, chelsea pain, redness, and discharge, ENT: Negative for injury, pain, and discharge, Neck: Negative for injury, pain, and swelling, Cardiovascular: Negative for chest pain, palpitations, and edema, Respiratory: Negative for shortness of breath, cough, wheezing, and pleuritic chest pain, Abdomen/GI: Negative for abdominal pain, nausea, vomiting, diarrhea, and constipation, Back: Negative for injury and pain, : Negative for injury, bleeding, discharge, and swelling, Skin: Negative for injury, rash, and discoloration, Neuro: Negative for headache, weakness, numbness, tingling, and seizure, Psych: Negative for depression, anxiety, suicide ideation, homicidal ideation, and hallucinations, Allergy/Immunology: Negative for hives, rash, and allergies, Endocrine: Negative for neck swelling, polydipsia, polyuria, polyphagia, and marked weight changes, Hematologic/Lymphatic: Negative for swollen nodes, abnormal bleeding, and unusual bruising, 09:41 MS/extremity: Positive for laceration, of the left hand and palmar aspect of middle phalanx of left index finger, Exam: 09:41 Constitutional: This is a well developed, well nourished patient who is awake, alert, chelsea and in no acute distress. Head/Face: Normocephalic, atraumatic. Eyes: Pupils equal round and reactive to light, extra-ocular motions intact. Lids and lashes normal. Conjunctiva and sclera are non-icteric and not injected. Cornea within normal limits. Periorbital areas with no swelling, redness, or edema. ENT: Nares patent. No nasal discharge, no septal abnormalities noted. Tympanic membranes are normal and external auditory canals are clear. Oropharynx with no redness, swelling, or masses, exudates, or evidence of obstruction, uvula midline. Mucous membranes moist. Neck: Trachea midline, no thyromegaly or masses palpated, and no cervical lymphadenopathy. Supple, full range of motion without nuchal rigidity, or vertebral point tenderness. No Meningismus. Chest/axilla: Normal chest wall appearance and motion. Nontender with no deformity. No lesions are appreciated. Cardiovascular: Regular rate and rhythm with a normal S1 and S2. No gallops, murmurs, or rubs. Normal PMI, no JVD. No pulse deficits. Respiratory: Lungs have equal breath sounds bilaterally, clear to auscultation and percussion. No rales, rhonchi or wheezes noted. No increased work of breathing, no retractions or nasal flaring. Abdomen/GI: Soft, non-tender, with normal bowel sounds. No distension or tympany. No guarding or rebound. No evidence of tenderness throughout. Back: No spinal tenderness. No costovertebral tenderness. Full range of motion. Skin: Warm, dry with normal turgor. Normal color with no rashes, no lesions, and no evidence of cellulitis. Neuro: Awake and alert, GCS 15, oriented to person, place, time, and situation. Cranial nerves II-XII grossly intact. Motor strength 5/5 in all extremities. Sensory grossly intact. Cerebellar exam normal. Normal gait. Psych: Awake, alert, with orientation to person, place and time. Behavior, mood, and affect are within normal limits. 09:41 Musculoskeletal/extremity: ROM: full active range of motion, full passive range of motion, Circulation is intact in all extremities. Sensation intact. Compartment Syndrome exam of affected extremity: is normal. Vital Signs: 07:55 BP 155 / 106; Pulse 71; Resp 16; Temp 97; Pulse Ox 100% on R/A; Weight 95.25 kg; Height iw 5 ft. 3 in. ; Pain /; 08:30 BP 148 / 99; Pulse 75; Resp 15; Pulse Ox 98% ; ko1 09:45 BP 145 / 88; Pulse 72; Resp 14; Pulse Ox 99% ; ko1 07:55 Body Mass Index 37.20 (95.25 kg, 160.02 cm) iw 07:55 Pain Scale: Adult iw Laceration: 09:42 Wound Repair of 1cm ( 0.4in ) subcutaneous laceration to palmar aspect of middle chelsea phalanx of left index finger. Irregularly shaped.. Skin/tissue flap noted.. Arterial bleeding noted.. Distal neuro/vascular/tendon intact. Anesthesia: Local anesthetic administered with 3 mls of 1% lidocaine. Wound prep: Moderate cleansing with betadine with hibiclenz by refinery technician by ri. Skin closed with 4 5-0 Prolene using interrupted sutures and sterile technique. Dressed with Neosporin, bandaid. Patient tolerated well. MDM: 08:00 Patient medically screened. [facility] 09:44 Differential diagnosis: contusion, tendonitis. Data reviewed: vital signs, nurses [facility] notes. Consideration of Admission/Observation Escalation of care including admission/observation considered. I considered the following discharge prescriptions or medication management in the emergency department Medications were administered in the Emergency Department. See MAR. Test considered but Not performed: X-ray: no x ray. Historians other than the Patient: pt well informed. Care significantly affected by the following chronic conditions: none. 05/24 08:04 Order name: Dressing - Wound; Complete Time: 09:22 [facility] 05/24 08:04 Order name: Gloves, Sterile; Complete Time: 08:10 [facility] 05/24 08:04 Order name: Prolene, Sutures; Complete Time: 08: [facility] 05/24 08:04 Order name: Setup Suture Tray; Complete Time: 08:10 [facility] Administered Medications: 09:22 Drug: Lidocaine Infiltration (1 %) 5 ml 5 ml Infiltration once; to bedside {Note: given ko1 by Dr Thomas.} Volume: 5 ml; Route: Infiltration; 09:37 Follow up: Response: No adverse reaction ko1 09:29 Drug: Boostrix Tdap IM 0.5 ml IM once; as a single dose Route: IM; Site: left deltoid; ko1 09:44 Follow up: Response: (VIS) Vaccine information sheet provided today. Questions and/or ko1 concerns addressed. VIS edition date: Mar 20, 2021.; No adverse reaction Disposition Summary: 05/24/24 09:50 Discharge Ordered Notes: Location: Home [facility] Problem: new chelsea Symptoms: have improved chelsea Condition: Stable [place] Diagnosis - Laceration without foreign body of left hand, initial encounter - index chelsea Followup: chelsea - With: Private Physician - When: 5 - 6 days - Reason: Recheck today's complaints, Re-evaluation by your physician Discharge Instructions: - Discharge Summary Sheet ce[place]sea - Laceration Care, Adult chelsea - Laceration Care, Adult, [id number] Forms: - Medication Reconciliation Form [facility] - Antibiotic Education [facility] - Prescription Opioid Use [facility] - Patient Portal Instructions [facility] - Leadership Thank You Letter [facility] Prescriptions: - Cephalexin 500 mg Oral capsule - take 1 capsule ORAL route every 6 hours for 7 days; 28 capsule; Refills: 0, [place] Product Selection Permitted Signatures: Juan Thomas MD MD cha Williams, Irene, RN RN Deb Harry RN RN ko1
[2024-05-24 10:12] VITALS: TEMP 97
[2024-05-24 10:14] VITALS: BP 145/88; O2SAT 99
== END 2024-05-24 09:58 | disposition home or self-care (01) ==
LOC: ER 07:41
DX: S61.211A Laceration without foreign body of left index finger without damage to nail, initial encounter (principal)
CPT/HCPCS: J2001